=== PATIENT | female | born 1940 | race Caucasian/White ===

== ENCOUNTER 2023-10-19 20:32 | Inpatient (IN) | payer MEDICARE, OTHER, SELFPAY ==
[2023-10-19] VITALS (9 sets, daily range): BP systolic 101–135; BP diastolic 51–63; PULSE 61–91; RESP 16–18; TEMP 36.3–36.4; O2SAT 94–98; BMI 25.7
--- NOTE | 2023-10-19 20:45 | DI.RAD.S_ITS ---
PROCEDURE: XR HIP W PEL IF DONE RT 2V INDICATIONS: fall, pain TECHNIQUE: 2 views of the hip were acquired. COMPARISON: None. FINDINGS: Bones: Mildly displaced fracture of the basicervical right hip region. There may also be a fracture fragment involving the greater trochanter. Moderate bilateral hip arthrosis. Bilateral calcific tendinopathy. Lumbosacral degenerative changes. Soft tissues: No suspicious calcifications. IMPRESSION: Right basicervical hip fracture. Possible fracture fragment of the greater trochanter also seen. Dictated by: En Urena M.D. on 10/19/2023 at 21:42 Approved by: En Urena M.D. on 10/19/2023 at 21:43
--- NOTE | 2023-10-19 20:46 | DI.RAD.S_ITS ---
PROCEDURE: XR FEMUR RT 1V INDICATIONS: fall, pain TECHNIQUE: 2 views of the femur were acquired. COMPARISON: None. FINDINGS: Bones: No displaced fracture of the femoral shaft. Partially seen knee degenerative changes. Soft tissues: Dystrophic ossification is seen anterior to the distal femur metaphysis. This may be within the suprapatellar recess, with effusion. IMPRESSION: No displaced fracture of the femoral shaft. Knee degenerative changes. Hip fracture findings are separately dictated. Partially seen knee effusion and possible intra-articular ossifications Dictated by: En Urena M.D. on 10/19/2023 at 21:43 Approved by: En Urena M.D. on 10/19/2023 at 21:44
--- NOTE | 2023-10-19 20:47 | DI.RAD.S_ITS ---
PROCEDURE: XR KNEE RT 1TO2V INDICATIONS: fall, pain TECHNIQUE: 2 views of the knee were acquired. COMPARISON: None. FINDINGS: Bones: Moderate to severe knee degenerative changes, particularly in the medial compartment and patellofemoral compartment. Patellar enthesopathy. No acute displaced fracture or dislocation. Soft tissues: Knee effusion and suprapatellar ossification. IMPRESSION: Moderate to severe degenerative changes. No acute radiographic abnormality. If there is high concern for occult injury, consider repeat radiography or cross-sectional imaging. Knee effusion and suprapatellar ossification. Dictated by: En Urena M.D. on 10/19/2023 at 21:44 Approved by: nE Urena M.D. on 10/19/2023 at 21:45
--- NOTE | 2023-10-19 21:55 | DI.RAD.S_ITS ---
PROCEDURE: XR CHEST 1V INDICATIONS: fall TECHNIQUE: One view of the chest was acquired. COMPARISON: None. FINDINGS: Surgical changes and devices: None. Lungs and pleura: No dense consolidation or pleural effusion. Nodule projects over the left lower lung, possibly nipple shadow. Mediastinum: Normal heart size Bones and chest wall: Degenerative change IMPRESSION: No acute radiographic abnormality. Indeterminate nodule projects over the left lower lobe, possibly nipple shadow. Dictated by: En Urena M.D. on 10/19/2023 at 23:24 Approved by: En Urena M.D. on 10/19/2023 at 23:25
--- NOTE | 2023-10-19 21:56 | EKG_ITS ---
[address] [address] Test Date: 2023-10-19 Pat Name: Jenni Aguirre Department: [facility] Room: Gender: Female Scow Captain: OLGA : 1940 Requested By: Order Number: [id number] Reading MD: Jan Belle Measurements Intervals [place] Rate: 79 P: 67 FL: 178 QRS: 61 QRSD: 82 T: 66 QT: 390 QTc: 447 Interpretive Statements Normal sinus rhythm Electronically Signed On 10-21-2023 18:25:21 PDT by Jan Belle
--- NOTE | 2023-10-19 21:59 | ED_ITS ---
HPI - Fall General Chief Complaint: Fall Stated Complaint: GLF, hip fx Time Seen by Provider: 10/19/23 20:53 Source: patient and EMS Mode of arrival: EMS History of Present Illness HPI Narrative: 83-year-old female had ground level fall in her [place] home about 6:00 p.m., feels that she tripped over slippery kitchen surface on a dress that was too long, complained of right-sided hip pain, no [employer] service available after hours, was flown by helicopter here for further evaluation. She has some discomfort also in her right knee, no swelling. She does not have pain to her right ankle or foot. She was given fentanyl EN route which transiently helped, now hurting again. She denies any other injuries. She denies pain to her head, face, neck, upper back, lower back, chest, arms, left leg. She denies use of any blood thinner medications. She takes multivitamin and glucosamine, denies other medication use recent. Related Data Home Medications Medication Instructions Recorded Confirmed CHOLECALCIFEROL (VITAMIN D3) 400 iu PO QDAY ##0 12/28/10 10/20/23 (VITAMIN D) Multivitamin and [id number] 240 ml PO BID ##0 12/28/10 10/20/23 (MULTIPLE VITAMIN 240 ML) Allergies Allergy/AdvReac Type Severity Reaction Status Date / Time No Known Drug Allergies Allergy Verified 10/19/23 20:43 Review of Systems Review of Systems Narrative: Per HPI Patient History Social History household members: spouse and family Smoking Status: Never smoker alcohol intake: never Smoking Status: Never smoker Substance Use Type: does not use Exam Narrative Exam Narrative: GENERAL: Well-developed patient, in mild distress. HEAD: Atraumatic. Normocephalic. EYES: Pupils equal round and reactive. Extraocular motions intact. No scleral icterus. No injection or drainage. ENT: Nose without bleeding, purulent drainage. Throat without erythema, tonsillar hypertrophy or exudate. Airway patent. NECK: Trachea midline. Non tender CARDIOVASCULAR: Regular rate and rhythm without murmurs, gallops, or rubs. RESPIRATORY: Clear to auscultation. Breath sounds equal bilaterally. No wheezes, rales, or rhonchi. GASTROINTESTINAL: Abdomen soft, non-tender, nondistended. EXTREMITIES: Tenderness to right hip anterior and lateral, no skin bruising or laceration or abrasion changes. No gross limb length discrepancy. Right DP pulse strong equal, good perfusion to right foot and toes. Mild tenderness along the mid upper femur. No gross angulation deformity of the femur. No tenderness to right knee medial joint line or lateral joint line, no gross knee effusion, no tenderness around the patella. No tenderness deformity swelling to left lower extremity. No tenderness deformity to either upper extremity. BACK: Nontender without deformity or crepitance. No flank tenderness. NEURO: AOx3. SKIN: No rash or erythema of visible areas Initial Vital Signs Initial Vital Signs: Vital Signs Temperature 97.3 F L 10/19/23 20:43 Pulse Rate 67 10/19/23 20:43 Respiratory Rate 16 10/19/23 20:43 Blood Pressure 131/58 L 10/19/23 20:43 Pulse Oximetry 95 10/19/23 20:43 Oxygen Delivery Method Room Air 10/19/23 20:43 Course Orders Ordered: Hydrocodone Bitart/Acetaminophen (Hydrocodone/Acet 5/325 Tablet) 1 tab PO Q4H PRN PRN Reason: Pain, Severe (7-10) Hydromorphone HCl (Hydromorphone 0.5 Mg Inj) 0.5 mg IV Q3H PRN PRN Reason: Pain, Moderate (4-6) Sodium Chloride (Normal Saline 0.9%) 1,000 mls @ 70 mls/hr IV CONT YAYO Last Admin: 10/20/23 01:56 Dose: 70 mls/hr Documented By: Naloxone HCl (Naloxone 0.4 Mg/Ml Vial) 0.2 mg IV Q2MIN PRN PRN Reason: Opiate Reversal Discontinued Medications Hydromorphone HCl (Hydromorphone 0.5 Mg Inj) 0.5 mg IV NOW ONE Stop: 10/19/23 23:22 Last Admin: 10/19/23 23:25 Dose: 0.5 mg Documented By: SIDNEY Vital Signs Vital signs: Vital Signs - 8 hr 10/19/23 20:43 10/19/23 21:18 10/19/23 21:30 Temperature 97.3 F L Pulse Rate 67 83 Respiratory Rate 16 Blood Pressure 131/58 L 118/58 L Pulse Oximetry 95 94 Oxygen Delivery Method Room Air 10/19/23 21:30 10/19/23 22:00 10/19/23 22:00 Temperature Pulse Rate 85 90 Respiratory Rate Blood Pressure 135/63 Pulse Oximetry 95 97 Oxygen Delivery Method 10/19/23 22:30 10/19/23 22:31 10/19/23 22:31 Temperature Pulse Rate 89 91 H Respiratory Rate Blood Pressure 125/59 L Pulse Oximetry 96 96 Oxygen Delivery Method Room Air MDM - Fall Lab Data 10/20/23 04:03 10/20/23 04:03 ECG Data Attestation: I personally reviewed and interpreted this ECG as follows: Interpretation: Normal sinus rhythm with rate of 79, no obvious ST segment elevation or depression changes. Normal axis. NE 178, QRS 82, QTC 447. [facility] Narrative Medical decision making narrative: 83-year-old female from [place], airlifted with fall and right hip pain, on x-ray has a right-sided basicervical hip fracture, possible fracture fragment of the greater trochanter, no blood thinner medications, takes vitamin and glucosamine only. We will send preoperative studies EKG, chest x-ray, urinalysis, CBC, CMP, PT/INR. She had initial response to [place] IV fentanyl, now having more pain, IV Dilaudid dose ordered. We will place Parada. We will contact Orthopedic surgery, likely admit to hospitalist, keep NPO. X-ray right hip. Impression: ?Right basicervical hip fracture. Possible fracture fragment of the greater trochanter also seen. ? Radiology report Right femur x-ray series. Impression: ?No displaced fracture of the femoral shaft. Knee degenerative changes. Hip fracture findings or separately dictated. Partially seen right knee effusion and possible intra-articular ossifications. ? Radiology report X-ray right knee. Impression: ?Moderate to severe degenerative changes. No acute radiographic abnormality. If there is high concern for injury, consider repeat radiography or cross-sectional imaging. Knee effusion and supra patellar ossification. ? Radiology report 2209, discussed orthopedic surgery Dr. Sanchez, she will consult, agrees with Parada placement, likely surgery by tomorrow afternoon, admit to hospitalist requested. Parada urinary catheter ordered 2244, discussed with hospitalist Dr. Henning, accepts patient for admission to inpatient Chest x-ray preoperative study single view. Impression: ?No acute radiographic abnormality. Indeterminate nodule projects over the left lower lobe, possible nipple shadow. ? Radiology report Critical Care Time Critical Care Time Critical Care Time: Yes Total Critical Care Time: 35 Attestation: The high probability of a clinically significant, sudden or life threatening deterioration of the [musculoskeletal, orthopedic] system(s) required my full and direct attention, intervention and personal management. The aggregate critical care time was [35] minutes. This time is in addition to time spent performing reported procedures but includes the following: [x] Data Review and interpretation [x] Patient assessment and monitoring of vital signs [x] Documentation [x] Medication orders and management Discharge Plan Departure Patient Disposition: Admitted As Inpatient Clinical Impression: Closed fracture of right hip, Lung nodule Admit Date/Time: 10/19/23 22:47 Admit Provider: Tripp Henning
[2023-10-19 23:21] LABS: Appearance Urine UA CLEAR; Bilirubin Urine UA NEGATIVE (NEGATIVE); Color Urine UA YELLOW; Glucose Urine UA NEGATIVE (Negative); Ketones Urine UA NEGATIVE (NEGATIVE); Leukocyte Esterase Urine UA TRACE (NEGATIVE); Nitrite Urine UA NEGATIVE (Negative); Occult Blood Urine UA NEGATIVE (Negative); Protein Urine UA NEGATIVE (Negative); Urobilinogen Urine UA 0.2 E.U./dL (0.2)
[2023-10-19] MEDS: HYDROMORPHONE 0.5 MG INJ IV (23:25)
[2023-10-19 23:27] LABS: INR 1.1 (0.9-1.3); Prothrombin Time 12.1 SECONDS (9.4-12.5)
[2023-10-19 23:30] LABS: PTT Partial Thromboplastin Tim 35 SECONDS (25.1-36.5)
[2023-10-19 23:31] LABS: Add Manual Diff / Slide Review NO; Alanine Aminotransferase 23 IU/L (<35); Albumin 3.8 g/dL (3.5-5.0); Albumin Globulin Ratio 1.4 (1.0-2.8); Alkaline Phosphatase 103 U/L (38-126); Aspartate Aminotransferase 28 IU/L (14-36); BUN Creatinine Ratio 19.5 (6-22); Basophils Absolute Auto 100 /uL (0-100); Basophils Percent Auto 0.6 % (0-2); Bilirubin Total 0.3 mg/dL (0.2-1.3); Blood Urea Nitrogen 17 mg/dL (7-17); Calcium 8.2 mg/dL (8.4-10.2); Carbon Dioxide 25 mmol/L (22-32); Chloride 108 mmol/L (98-107); Eosinophils Absolute Auto 0 /uL (0-450); Eosinophils Percent Auto 0.3 % (2-4); Estimated Glomerular Filt Rate > 60 mL/min (>60); Globulin 2.8 g/dL (1.7-4.1); Glucose 150 mg/dL (80-110); HEMOLYSIS 17 (0-50); Hemoglobin 12.8 g/dL (12.0-16.0); Lymphocytes Absolute Auto 800 /uL (1100-4500); Lymphocytes Percent Auto 5.7 % (25-40); Mean Corpuscular HGB Conc 33.7 % (30-36); Mean Corpuscular Hemoglobin 32.2 PG (26-34); Mean Corpuscular Volume 95.6 fL (80-100); Monocytes Absolute Auto 700 /uL (0-900); Monocytes Percent Auto 4.8 % (3-14); Neutrophils Absolute Auto 13100 /uL (1500-7000); Neutrophils Percent Auto 88.6 % (50-75); Platelet Count 256 X10^3/uL (150-400); Red Blood Cell Count 3.97 X10^6/uL (4.0-5.2); Sodium 137 mmol/L (137-145); Total Protein 6.6 g/dL (6.3-8.2); White Blood Cell Count 14.7 X10^3/uL (4.5-11.0)
[2023-10-19 23:34] LABS: Bacteria Urine Occasional (0-1); Culture Indicated Urine Specimen Cultured; RBC Urine None Seen (0-5/HPF); Squamous Epithelial Cell Urine 0-1 /HPF (0-5/HPF); Urine Volume 10mL (spun); WBC Urine 0-1/HPF (0-5/HPF)
[2023-10-20 00:02] VITALS: BMI 25.7
--- NOTE | 2023-10-20 01:23 | P.HP_ITS ---
History of Present Illness History of Present Illness Date Patient Seen: 10/20/23 Time Patient Seen: 01:10 Chief complaint: GLF, hip fx Narrative: patient is a 83 years old pleasant female with apparent no medical issues except for [id number] vitamins was brought to the emergency room status post fall in the kitchen. It was a mechanical fall and she tripped over her dress with significant right-sided hip pain. Denies any chest pain shortness of breath palpitation dizziness or loss of consciousness. No trauma to the head. She was flown by helicopter to the [facility] for further evaluation. Denies any nausea vomiting or abdominal pain. Denies bowel movementbladder issues. X-ray of the right hip showed right basicervical hip fracture with tumor x-ray shows no displaced fracture of the femoral shaft. X-ray of the knee shows significant degenerative change. Dr. Sanchez from orthopedics were consulted and patient was admitted for further evaluatio [facility] Social History household members: spouse and family Smoking Status: Never smoker alcohol intake: never Meds Home Medications and Allergies Home Medications Medication Instructions Recorded Confirmed Type CHOLECALCIFEROL (VITAMIN D3) 400 iu PO QDAY ##0 12/28/10 10/20/23 History (VITAMIN D) Multivitamin and Oumyryoq56 240 ml PO BID ##0 12/28/10 10/20/23 History (MULTIPLE VITAMIN 240 ML) Allergies Allergy/AdvReac Type Severity Reaction Status Date / Time No Known Drug Allergies Allergy Verified 10/19/23 20:43 Review of Systems Review of Systems Narrative: A 12 point review of system is negative unless otherwise stated in the history of present illness Exam Vital Signs (past 8 hours): - 10/19/23 20:43 10/19/23 21:18 10/19/23 21:30 Temperature 97.3 F L Pulse Rate 67 83 Respiratory Rate 16 Blood Pressure 131/58 L 118/58 L Pulse Oximetry 95 94 Oxygen Delivery Method Room Air Oxygen Flow Rate 10/19/23 21:30 10/19/23 22:00 10/19/23 22:00 Temperature Pulse Rate 85 90 Respiratory Rate Blood Pressure 135/63 Pulse Oximetry 95 97 Oxygen Delivery Method Oxygen Flow Rate 10/19/23 22:30 10/19/23 22:31 10/19/23 22:31 Temperature Pulse Rate 89 91 H Respiratory Rate Blood Pressure 125/59 L Pulse Oximetry 96 96 Oxygen Delivery Method Room Air Oxygen Flow Rate 10/19/23 23:00 10/19/23 23:00 10/19/23 23:29 Temperature Pulse Rate 81 83 Respiratory Rate 18 Blood Pressure 127/61 127/61 Pulse Oximetry 97 98 Oxygen Delivery Method Room Air Oxygen Flow Rate 10/19/23 23:30 Temperature 97.6 F Pulse Rate 61 Respiratory Rate 17 Blood Pressure 101/51 L Pulse Oximetry 96 Oxygen Delivery Method Oxygen Flow Rate 0 Oxygen Delivery Method Room Air Oxygen Flow Rate 0 Narrative Exam Narrative: Decreased range of motion in the right hip. Pulse noted in the extremities Patient is in no acute distress S1-S2 heard no S3 no S4 Objective Labs 10/19/23 23:00 10/19/23 23:00 Labs: Laboratory Results - last 24 hr 10/19/23 23:00 WBC 14.7 H RBC 3.97 L Hgb 12.8 Hct 38.0 MCV 95.6 MCH 32.2 MCHC 33.7 RDW 14.0 Plt Count 256 Neut % (Auto) 88.6 H Lymph % (Auto) 5.7 L [place] % (Auto) 4.8 Eos % (Auto) 0.3 L Baso % (Auto) 0.6 Neut # (Auto) 99221 H Lymph # (Auto) 800 L [place] # (Auto) 700 Eos # (Auto) 0 Baso # (Auto) 100 PT 12.1 INR 1.1 APTT 35 Sodium 137 Potassium 4.0 Chloride 108 H Carbon Dioxide 25 BUN 17 Creatinine 0.87 Estimated GFR > 60 BUN/Creatinine Ratio 19.5 Glucose 150 H Calcium 8.2 L Total Bilirubin 0.3 AST 28 ALT 23 Alkaline Phosphatase 103 Total Protein 6.6 Albumin 3.8 Globulin 2.8 Albumin/Globulin Ratio 1.4 Urine Color Yellow Urine Appearance Clear Urine pH 8.0 Ur Specific [place] 1.010 Urine Protein Negative Urine Glucose (UA) Negative Urine Ketones Negative Urine Occult Blood Negative Urine Nitrate Negative Urine Bilirubin Negative Urine Urobilinogen 0.2 Ur Leukocyte Esterase Trace H Urine RBC None seen Urine WBC 0-1/hpf Ur Squamous Epith Cells 0-1 /hpf Urine Bacteria Occasional (0-1) Ur Culture Indicated? Specimen cultured Vol Urine Centrifuged 10ml (spun) Assessment & Plan Assessment & Plan narrative: patient is a 83 years old pleasant female with apparent no medical issues except for dpid-lcm-lyvnsoi vitamins was brought to the emergency room status post fall in the kitchen. It was a mechanical fall and she tripped over her dress with significant right-sided hip pain. Denies any chest pain shortness of breath palpitation dizziness or loss of consciousness. No trauma to the head. She was flown by helicopter to the [facility] for further evaluation. Denies any nausea vomiting or abdominal pain. Denies bowel movementbladder issues. X-ray of the right hip showed right basicervical hip fracture with tumor x-ray shows no displaced fracture of the femoral shaft. X-ray of the knee shows significant degenerative change. Dr. Sanchez from orthopedics were consulted and patient was admitted for further evaluation 1 right hip fracture status post mechanical fall. Currently denies any cardiac or respiratory symptoms. Apparently no medical issues and not on medications. Medically optimized for orthopedic surgery that is urgent to reduce the risk of mortality and morbidity 2 right hip pain. Has better pain relief with Dilaudid given in the emergency room and will continue the same 3 DVT prophylaxis will be SCDs for now. Chemoprophylaxis per orthopedics 4 GI prophylaxis will be Protonix Patient will be admitted under inpatient status given the acute hip fracture needing surgical intervention/IV pain medications and expected length of stay greater than 2 midnights
[2023-10-20] MEDS: SODIUM CHLORIDE 0.9% 1,000 ML 70 ML IV ×2 (01:56→15:24)
[2023-10-20 04:07] VITALS: BP 114/51; PULSE 63; RESP 16; TEMP 36.6; O2SAT 96
[2023-10-20 05:02] LABS: Add Manual Diff / Slide Review NO; Basophils Absolute Auto 0 /uL (0-100); Basophils Percent Auto 0.2 % (0-2); Eosinophils Absolute Auto 0 /uL (0-450); Eosinophils Percent Auto 0.1 % (2-4); Hematocrit 36.4 % (36-46); Hemoglobin 12.3 g/dL (12.0-16.0); Lymphocytes Absolute Auto 900 /uL (1100-4500); Mean Corpuscular HGB Conc 33.9 % (30-36); Mean Corpuscular Hemoglobin 32.3 PG (26-34); Mean Corpuscular Volume 95.4 fL (80-100); Monocytes Absolute Auto 800 /uL (0-900); Monocytes Percent Auto 6.5 % (3-14); Neutrophils Absolute Auto 10700 /uL (1500-7000); Neutrophils Percent Auto 86.2 % (50-75); Platelet Count 244 X10^3/uL (150-400); Red Blood Cell Count 3.81 X10^6/uL (4.0-5.2); Red Cell Distribution Width 13.7 % (11.6-14.8); White Blood Cell Count 12.4 X10^3/uL (4.5-11.0)
[2023-10-20 05:15] LABS: Alanine Aminotransferase 20 IU/L (<35); Albumin 3.6 g/dL (3.5-5.0); Albumin Globulin Ratio 1.3 (1.0-2.8); Alkaline Phosphatase 79 U/L (38-126); Aspartate Aminotransferase 26 IU/L (14-36); BUN Creatinine Ratio 18.6 (6-22); Bilirubin Total 0.5 mg/dL (0.2-1.3); Blood Urea Nitrogen 16 mg/dL (7-17); Calcium 8.1 mg/dL (8.4-10.2); Carbon Dioxide 26 mmol/L (22-32); Chloride 107 mmol/L (98-107); Estimated Glomerular Filt Rate > 60 mL/min (>60); Globulin 2.7 g/dL (1.7-4.1); Glucose 149 mg/dL (80-110); HEMOLYSIS < 15 (0-50); Magnesium 2.4 mg/dL (1.6-2.3); Potassium 4.3 mmol/L (3.4-5.1); Sodium 137 mmol/L (137-145); Total Protein 6.3 g/dL (6.3-8.2)
[2023-10-20 10:10] VITALS: BP 110/49; PULSE 80; RESP 17; TEMP 36.8; O2SAT 95
[2023-10-20] MEDS: HYDROCODONE/ACET 5/325 TABLET 1 TAB PO ×3 (10:15→20:20)
[2023-10-20 14:00] VITALS: BP 111/50; PULSE 70; RESP 15; TEMP 37.2; O2SAT 98
--- NOTE | 2023-10-20 14:28 | PM.HP.1 ---
History of Present Illness History of Present Illness Date Patient Seen: 10/20/23 Time Patient Seen: 11:00 Chief complaint: GLF, hip fx Narrative: patient is a 83 years old pleasant female with apparent no medical issues except for qqvm-yiu-rordkmm vitamins was brought to the emergency room status post fall in the kitchen. It was a mechanical fall and she tripped over her dress with significant right-sided hip pain. Denies any chest pain shortness of breath palpitation dizziness or loss of consciousness. No trauma to the head. She was flown by helicopter to the [facility] for further evaluation. Denies any nausea vomiting or abdominal pain. Denies bowel movementbladder issues. X-ray of the right hip showed right basicervical hip fracture with tumor x-ray shows no displaced fracture of the femoral shaft. X-ray of the knee shows significant degenerative change. Dr. Sanchez from orthopedics were consulted and patient was admitted for further evaluatio [facility] Social History household members: spouse and family Smoking Status: Never smoker alcohol intake: never Meds Home Medications and Allergies Home Medications Medication Instructions Recorded Confirmed Type CHOLECALCIFEROL (VITAMIN D3) 400 iu PO QDAY ##0 12/28/10 10/20/23 History (VITAMIN D) Multivitamin and Ocreksbt13 240 ml PO BID ##0 12/28/10 10/20/23 History (MULTIPLE VITAMIN 240 ML) Allergies Allergy/AdvReac Type Severity Reaction Status Date / Time No Known Drug Allergies Allergy Verified 10/19/23 20:43 Review of Systems Review of Systems Narrative: All other systems reviewed with the patient and are negative unless otherwise stated. Exam Vital Signs (past 8 hours): - 10/20/23 10:10 Temperature 98.3 F Pulse Rate 80 Respiratory Rate 17 Blood Pressure 110/49 L Pulse Oximetry 95 Oxygen Flow Rate 0 Oxygen Delivery Method Room Air Oxygen Flow Rate 0 Narrative Exam Narrative: General:? Patient is well developed and well nourished, in no distress at this time. HEENT:? Normocephalic, atraumatic, extraocular muscles intact, oral pharynx is clear and mucous membranes are moist. Neck: supple and symmetric, trachea is midline, no cervical adenopathy. Negative for JVD Chest:? Normal AP diameter and contour without kyphoscoliosis, no tachypnea, equal chest rise bilaterally. Lungs:? CTA b/l no wheezing rhonchi or rales. Cardio:?RRR no m/r/g. Abdomen: S NT ND. No CVA tenderness. Musculoskeletal:? Muscle strength and tone are equal within normal limits, no deformity. Extremities: No edema or joint effusions. No cyanosis or clubbing. Skin:? Pale,? Warm to touch,dry and intact without rashes, ulcerations or petechiae.? Neuro:? Alert and orientated x3,? sensation to touch intact in all extremities, no gross deficits noted of cranial nerves. Psych:? Patient has a well-kept appearance, appropriate affect, mental status attitude thought context and judgment are appropriate for age. Objective Labs 10/20/23 04:03 10/20/23 04:03 Labs: Laboratory Results - last 24 hr 10/19/23 10/20/23 23:00 04:03 WBC 14.7 H 12.4 H RBC 3.97 L 3.81 L Hgb 12.8 12.3 Hct 38.0 36.4 MCV 95.6 95.4 MCH 32.2 32.3 MCHC 33.7 33.9 RDW 14.0 13.7 Plt Count 256 244 Neut % (Auto) 88.6 H 86.2 H Lymph % (Auto) 5.7 L 7.0 L [place] % (Auto) 4.8 6.5 Eos % (Auto) 0.3 L 0.1 L Baso % (Auto) 0.6 0.2 Neut # (Auto) 99857 H 52616 H Lymph # (Auto) 800 L 900 L [place] # (Auto) 700 800 Eos # (Auto) 0 0 Baso # (Auto) 100 0 PT 12.1 INR 1.1 APTT 35 Sodium 137 137 Potassium 4.0 4.3 Chloride 108 H 107 Carbon Dioxide 25 26 BUN 17 16 Creatinine 0.87 0.86 Estimated GFR > 60 > 60 BUN/Creatinine Ratio 19.5 18.6 Glucose 150 H 149 H Calcium 8.2 L 8.1 L Magnesium 2.4 H Total Bilirubin 0.3 0.5 AST 28 26 ALT 23 20 Alkaline Phosphatase 103 79 Total Protein 6.6 6.3 Albumin 3.8 3.6 Globulin 2.8 2.7 Albumin/Globulin Ratio 1.4 1.3 Urine Color Yellow Urine Appearance Clear Urine pH 8.0 Ur Specific [place] 1.010 Urine Protein Negative Urine Glucose (UA) Negative Urine Ketones Negative Urine Occult Blood Negative Urine Nitrate Negative Urine Bilirubin Negative Urine Urobilinogen 0.2 Ur Leukocyte Esterase Trace H Urine RBC None seen Urine WBC 0-1/hpf Ur Squamous Epith Cells 0-1 /hpf Urine Bacteria Occasional (0-1) Ur Culture Indicated? Specimen cultured Vol Urine Centrifuged 10ml (spun) Assessment & Plan Assessment & Plan narrative: 1 pathologic R proximal femur / hip fracture. - management per orthopedics, surgery delayed until tomorrow - continue pain control for now, patient reports pain is tolerable. PT/OT after surgery - NPO @ [facility] for planned OR interventions tomorrow. 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 She does not wish to start treatment at this time. Further discussion recommended with PCP. - there are no obvious lab findings to suggest a metabolic etiology for her fall. No further evaluation necessary prior to planned surgery. Patient will be admitted under inpatient status given the acute hip fracture needing surgical intervention/IV pain medications and expected length of stay greater than 2 midnights Code: Full, surrogate is listed as patient's friend DVT: Lovenox daily I have utilized all available immediate resources to obtain, update, or review the patient's current medications. Dispo: patient admitted under inpatient status. Unclear if will be able to discharge home or possible SNF, will have PT/OT evaluations. Likely discharge 10/22 or 10/23. Additional history obtained via discussions with the overnight provider. These discussions contributed to the creation of the above assessment and plan. I have reviewed patient's presenting documentation, labs, and imaging personally.
--- NOTE | 2023-10-20 15:55 | CM.DANOTE ---
DCP Assessment: Pt is a 83yo female, resident of [place], [place], is presents following a GLF resulting in a hip fracture. Pt currently lives in a house with her , Mac, and her grandnephew, Sal Flaherty. Patient is the primary caregiver for her who has Progressive supranuclear palsy (PSP). Pt's Primary Care Provider is Dr. DICKERSON and insurance is [facility] and Medicare. Reviewed chart and team rounds for pt's medical status and initial discharge needs. DCP met w/patient at bedside; introduced self and role. Pt was found in bed, alert and oriented, cooperative with assessment. Pt confirmed living situation (lives in [place], [place] for three months, [place] in the summer and [facility] for another three months) and being the primary emergency care tech for her . Pt endorsed good support in her grandnephew, Sal, who lives with them in the summer. Pt communicated agreement with plans for surgery tomorrow, 10/20, and is open to hearing the recommendations for discharge. Pt is open to SNF referral and stated no preference for any facilities in the area. Pt explained that if the plan of care looks to be longer than three months, she will hope to return to [facility] to complete care. Plan: Pt to have surgery tomorrow, 10/20. Awaiting PT/OT evaluations following procedure and recommendation for evolving discharge plans. CM team will plan to follow clinical course closely for coordination of discharge plan. MANSI Dalal Discharge Planning/Care Management CM Discharge Assessment Start: 10/20/23 15:37 Freq: Status: Active Protocol: Document 10/20/23 15:37 MW (Rec: 10/20/23 15:55 MW [id number]) Discharge Planning Assessment Assigned Slot Operations Manager MAYLIN Gayle DPGEETA/Assigned Designee Name Fred Krishnan Advance Directives? No History Provided By Patient,Medical Record Has Patient been admitted in last 30 No days? Prior Living Arrangements House Comment Patient lives in [place], [place] for three months of the year, then on [place] for the summer then [facility] for another three months. Household Members spouse,family Comment Patient owns home on [address] with her , her grandnephew, Sal, lives with them in the summer. Type of transporation used prior to Drives own vehicle admit Independent with ADL's Yes Is patient alert and oriented? Yes Caregiver for Another Yes: Patient's has Progressive supranuclear palsy (PSP). Patient/Family Preference Shelter Facility Comment Patient open to SNF referral if recommended by therapies. Patient has plans to return to [facility] in November. Barriers to Discharge No Please Provide Date Initial DC 10/20/23 Assessment Was Performed Next Review Type Continued Stay Review
[2023-10-20 18:00] VITALS: BP 109/48; PULSE 77; RESP 17; TEMP 36.7; O2SAT 96
[2023-10-20 19:56] VITALS: BP 113/55; PULSE 72; RESP 16; TEMP 36.6; O2SAT 96
[2023-10-21] VITALS (16 sets, daily range): BP systolic 90–137; BP diastolic 29–61; PULSE 71–87; RESP 12–20; TEMP 36.2–36.8; O2SAT 92–98; BMI 25.7
--- NOTE | 2023-10-21 | DI.RAD.S_ITS ---
PROCEDURE: XR HIP W PEL IF DONE RT 4V INDICATIONS: ORIF RIGHT HIP NAIL TECHNIQUE: AP pelvis with lateral view(s) of the right hip(s). COMPARISON: [facility], , XR HIP W PEL IF DONE RT 2V, 10/19/2023, 20:47. FINDINGS: Intraoperative images demonstrating fixation of the right femoral head as well as distal femur. IMPRESSION: Femoral fixation. Dictated by: Odette Elmore M.D. on 10/21/2023 at 17:02 Approved by: Odette Elmore M.D. on 10/21/2023 at 17:03
[2023-10-21] MEDS: HYDROCODONE/ACET 5/325 TABLET 1 TAB PO ×2 (00:12→04:11)
[2023-10-21] MEDS: SODIUM CHLORIDE 0.9% 1,000 ML 70 ML IV (04:45)
[2023-10-21] MEDS: HYDROMORPHONE 0.5 MG INJ IV (08:58)
--- NOTE | 2023-10-21 10:57 | CM.DPNOTE ---
DCP Note LABORER MINE reviewed EMR. Per hospitalist in morning rounds, OR scheduled for today. Per RN, scheduled for 1400. Per RN, pt pleasant and overall doing well. LABORER MINE attempted to meet with pt in room, sleeping heavily. This LABORER MINE allowed her to rest prior to her surgery today. Plan: Pt to have surgery today, 10/20. Awaiting PT/OT evaluations following procedure and recommendation for evolving discharge plans. SNF here if less than 3 months likely vs SNF in [place]? [facility] ([facility] due to [facility]). Referrals needed. CM team will plan to follow clinical course closely for coordination of discharge plan. MAYLIN Araiza
--- NOTE | 2023-10-21 13:11 | PM.PN.1 ---
Subjective Subjective Interval history: 83 F admitted with a hip fracture. ORIF planned for today with orthopedics. Her pain is controlled today. Exam Vital Signs (past 8 hours): - 10/21/23 08:00 10/21/23 12:00 Temperature 97.2 F L 97.7 F Pulse Rate 71 80 Respiratory Rate 16 18 Blood Pressure 119/49 L 137/59 L Pulse Oximetry 97 96 Oxygen Flow Rate 0 0 Oxygen Delivery Method Room Air Oxygen Flow Rate 0 Narrative Exam Narrative: General:? Patient is well developed and well nourished, in no distress at this time. Lungs:? CTA b/l no wheezing rhonchi or rales. Cardio:?RRR no m/r/g. Musculoskeletal:? Muscle strength and tone are equal within normal limits Extremities: No edema or joint effusions. Skin:? Pale,? Warm to touch,dry and intact without rashes, ulcerations or petechiae.? Neuro:? Alert and orientated x3,? sensation to touch intact in all extremities, no gross deficits noted of cranial nerves. Psych:? Patient has a well-kept appearance, appropriate affect, mental status attitude thought context and judgment are appropriate for age. Objective Labs 10/20/23 04:03 10/20/23 04:03 [facility] Social History household members: spouse and family Smoking Status: Never smoker alcohol intake: never Assessment & Plan Assessment & Plan narrative: 1 pathologic R proximal femur / hip fracture. - management per orthopedics, surgery delayed until tomorrow - continue pain control for now, patient reports pain is tolerable. PT/OT after surgery - NPO @ [place] for planned OR interventions tomorrow. 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 She does not wish to start treatment at this time. Further discussion recommended with PCP. - there are no obvious lab findings to suggest a metabolic etiology for her fall. No further evaluation necessary prior to planned surgery. Patient will be admitted under inpatient status given the acute hip fracture needing surgical intervention/IV pain medications and expected length of stay greater than 2 midnights Code: Full, surrogate is listed as patient's friend DVT: Lovenox daily after OR for 4 weeks or asa BID for 6 weeks if more ambulatory. Dispo: patient admitted under inpatient status. Unclear if will be able to discharge home or possible SNF, will have PT/OT evaluations. Likely discharge 10/22 or 10/23.
--- NOTE | 2023-10-21 14:05 | P.HP_ITS ---
History of Present Illness History of Present Illness Date Patient Seen: 10/21/23 Time Patient Seen: 14:06 Date of Onset of Symptoms: 10/26/23 Chief complaint: GLF, hip fx Narrative: 83-year-old female patient seen in evaluation for right hip fracture. She says she had a fall on some slick tile Friday evening. She was brought here by helicopter as she lives on [address]. She says she had a recent wellness check with her primary care physician within the past month and had no major medical issues at that checkup. She does not take any prescription medications. She says she is overall very healthy. She complains of pain in right hip. It is worse with movement and partially alleviated by rest. It does not radiate. [facility] Social History household members: spouse and family Smoking Status: Never smoker alcohol intake: never Meds Home Medications and Allergies Home Medications Medication Instructions Recorded Confirmed Type CHOLECALCIFEROL (VITAMIN D3) 400 iu PO QDAY ##0 12/28/10 10/20/23 History (VITAMIN D) Multivitamin and Xusjeszy55 240 ml PO BID ##0 12/28/10 10/20/23 History (MULTIPLE VITAMIN 240 ML) Allergies Allergy/AdvReac Type Severity Reaction Status Date / Time No Known Drug Allergies Allergy Verified 10/19/23 20:43 Review of Systems Review of Systems ROS: Yes All systems reviewed with the patient and are negative except as otherwise documented Exam Vital Signs (past 8 hours): - 10/21/23 08:00 10/21/23 12:00 Temperature 97.2 F L 97.7 F Pulse Rate 71 80 Respiratory Rate 16 18 Blood Pressure 119/49 L 137/59 L Pulse Oximetry 97 96 Oxygen Flow Rate 0 0 Oxygen Delivery Method Room Air Oxygen Flow Rate 0 Narrative Exam Narrative: Right lower extremity shortened and externally rotated. Range of motion examination deferred given known injury. Sensation intact to light touch in L2 through S1 nerve distributions. Motor function intact in foot Const General: cooperative Orientation: alert and awake [facility] Head: normal to inspection Ears: hearing grossly normal bilaterally Eyes General: appearance normal, both eyes and all related structures Neck Neck: normal visual inspection Resp Effort & Inspection: normal respiratory effort and able to speak in complete sentences Cardio Pulses: other (peripheral pulses present) Skin Lesions: no lesions Rashes: no rashes Neuro General: patient alert, patient awake and moves all extremities Psych Appearance: grossly normal Objective Imaging Pelvis and right femur x-rays: My impression: Unstable intertrochanteric right femur fracture Labs 10/20/23 04:03 10/20/23 04:03 Assessment & Plan Assessment and plan (1) Closed fracture of right hip: Status: Acute Plan Plan to proceed with intramedullary nailing of the right hip today. Patient has been marked and consented. Discussed risks and benefits of surgery with her at length. Specific risks discussed include nonunion, malunion, posttraumatic arthritis, damage to surrounding structures, infection, perioperative medical complications. Patient understands these risks and wishes to proceed. We will plan for her to be weight-bearing as tolerated postoperatively. She will have a mobility assessment postoperatively determine the feasibility of returning home versus discharging to a [place] [facility] facility for subacute rehabilitation.
[2023-10-21] MEDS: LACTATED RINGERS 1,000 ML 42 ML IV ×2 (14:33→16:10)
[2023-10-21] MEDS: CEFAZOLIN 2 GM/100 ML PREMIX 100 ML IV (15:10)
--- NOTE | 2023-10-21 15:11 | SUR.OPER ---
Patient supine on padded [facility] table, one arm on padded arm board at <90, other arm padded and secured with tape across patient's chest, both legs secured in padded traction boots and positioned per surgeon, padded post at patient's groin, pressure points checked and padded.
[2023-10-21] MEDS: TRANEXAMIC ACID 1,000 MG in SODIUM CHLORIDE 0.9% 100 ML 200 MG IV ×2 (15:15→16:20)
[2023-10-21] MEDS: ACETAMINOPHEN IV 1,000 MG/100 ML VIAL 400 MG IV (15:35)
[2023-10-21] MEDS: BUPIVACAINE 0.25% (PF) 30 ML, EPINEPHrine 0.15 MG INJ (15:44)
--- NOTE | 2023-10-21 16:40 | P.OP_ITS ---
Operative Date/Time/Diagnoses Date of procedure: 10/21/23 Pre-op diagnosis: Intertrochanteric right femur fracture Post-op diagnosis: same Procedure & Clinicians Procedure: Intramedullary nailing of intertrochanteric right femur fracture Same procedure as scheduled: Yes Surgeon: Otf Mahmood Click Yes if Unassisted: Yes Anesthesia Type: General, Spinal and Local Operative Notes Estimated Blood Loss (mL): 300 Procedure in detail: Right Hip Intramedullary Nailing for Intertrochanteric Femur Fracture Implants: * [employer]hew 10 mm x 38 cm InterTAN nail * 95 mm proximal lag screw * 90 mm proximal compression screw * 40 mm distal interlocking screw * 45 mm distal interlocking screw Procedure in detail: This patient presented to the hospital for hip pain and was found to have an intertrochanteric femur fracture on radiographic evaluation in the emergency department. ?As the on-call orthopedic surgeon I was consulted for management. ?The patient was admitted to the medicine service here at [facility] and received a preoperative evaluation to ensure that no optimization measures would be necessary to minimize the patient's risk for complications around surgery prior to proceeding with intramedullary nailing. ?After assessment from the signal apprentice as well as anesthesia the patient was deemed optimized for surgery. ?Risks and benefits were discussed. ?All questions were answered. ?Informed consent was obtained. ?The operative site on the laterality extremity was marked. ?The patient was taken to the operating room and transferred onto a [place] table. ?All bony prominences were padded. ?A time-out procedure was performed verifying the correct patient identity, operative site, medical comorbidities, ASA score, and medication allergies. ?Injury radiographs displaying the injured hip were displayed in the room. ?Ancef and tranexamic acid were administered. Prior to incision fluoroscopy was utilized to manipulate the fracture into an appropriate reduction. ?This involved traction and 15 degrees of internal rotation. With neutral rotation the femur could be brought into a more valgus orientation however this resulted in gapping near the calcar. Once the leg was internally rotated to 15? there was cortical reduction on the calcar which improved with the application of traction.. ?Once satisfied with the radiographic appearance of the fracture on an AP hip radiograph as well as a lateral hip radiograph the patient was prepped and draped in the usual sterile fashion. ?I mapped out the start points fluoroscopically with the guidewire. ?I obtained a start point at the tip of the greater trochanter on the AP view aiming towards the lesser trochanter and centered in the greater trochanter aiming down the femoral shaft on the lateral view. ?The guidewire was inserted and an opening Reamer was utilized to gain access to the canal. An intramedullary wood miller was used to locate the hole from the opening Reamer and a guidewire was passed down to the knee. This was measured at 40 cm so a 38 cm nail was planned for. An 11.5 mm Reamer was used to open the canal. ?The InterTAN nail was introduced and passed down to an appropriate depth where the i nterlocking screws would aim towards the center of the femur on an AP view. ?On a lateral fluoroscopic view the rotation of the C-arm was adjusted until the nail was centered in the femoral head. ?The jig was then rotated so that it would line with the nail and the femoral head in order to set the rotation of the nail. ?A guidewire was passed and evaluated to ensure appropriate center center position on both the AP and lateral fluoroscopic images to minimize tip apex distance. ?Once satisfied with the guidewire position I used the drills for the lag and compression screws for the InterTAN nail and measured the length of those. ?The compression screw utilized was 5 mm shorter than the lag screw. ?These were both inserted and correct positioning was verified fluoroscopically. ?I moved distally to the knee and obtained perfect circles. 2 distal interlocks were inserted through the aid of perfect circles. ?The threaded capture was removed proximally and final fluoroscopic images were obtained evaluating fracture reduction and implant positioning on AP and lateral views throughout the entire construct. ?I was satisfied with these radiographs. The wound was copiously irrigated. ?Local anesthesia was infiltrated throughout the wound. ?The wound was closed and a soft dressing was applied. ?The patient was transferred off of the [place] table and brought to the PACU. Postoperative plan: * Weightbearing as tolerated * Aspirin 81 mg twice per day for DVT prophylaxis * Recommend multimodal pain regimen * Physical therapy to evaluate patient mobility, home set up, and availability of assistance at home to determine appropriateness for discharge home versus subacute rehab * Follow up in [address] [facility]
[2023-10-21] MEDS: LACTATED RINGERS 1,000 ML 100 ML IV (17:30)
[2023-10-21] MEDS: diphenhydrAMINE 25 MG TABLET 50 MG PO (19:41)
[2023-10-21 20:59] LABS: Hematocrit 33.9 % (36-46); Hemoglobin 11.3 g/dL (12.0-16.0)
[2023-10-21] MEDS: DOCUSATE 100 MG CAPSULE PO (22:05)
[2023-10-21] MEDS: ASPIRIN EC 81 MG TABLET PO (22:05)
[2023-10-21] MEDS: SENNOSIDES 8.6 MG TABLET 17.2 MG PO (22:05)
[2023-10-21] MEDS: CEFAZOLIN VIAL 1 GM in SODIUM CHLORIDE 0.9% 100 ML IV (23:40)
[2023-10-22] VITALS (8 sets, daily range): BP systolic 91–106; BP diastolic 37–47; PULSE 78–91; RESP 14–18; TEMP 36.4–37.9; O2SAT 91–98
[2023-10-22] MEDS: LACTATED RINGERS 1,000 ML 100 ML IV (03:42)
[2023-10-22 05:08] LABS: Add Manual Diff / Slide Review NO; Basophils Absolute Auto 0 /uL (0-100); Basophils Percent Auto 0.2 % (0-2); Eosinophils Absolute Auto 100 /uL (0-450); Eosinophils Percent Auto 1.3 % (2-4); Hematocrit 33.4 % (36-46); Hemoglobin 11.4 g/dL (12.0-16.0); Lymphocytes Absolute Auto 700 /uL (1100-4500); Lymphocytes Percent Auto 7.9 % (25-40); Mean Corpuscular HGB Conc 34.1 % (30-36); Mean Corpuscular Hemoglobin 32.8 PG (26-34); Mean Corpuscular Volume 96.3 fL (80-100); Monocytes Absolute Auto 1000 /uL (0-900); Monocytes Percent Auto 10.2 % (3-14); Neutrophils Absolute Auto 7600 /uL (1500-7000); Neutrophils Percent Auto 80.4 % (50-75); Platelet Count 190 X10^3/uL (150-400); Red Blood Cell Count 3.47 X10^6/uL (4.0-5.2); Red Cell Distribution Width 13.8 % (11.6-14.8); White Blood Cell Count 9.5 X10^3/uL (4.5-11.0)
[2023-10-22 05:20] LABS: BUN Creatinine Ratio 15.5 (6-22); Blood Urea Nitrogen 17 mg/dL (7-17); Calcium 7.7 mg/dL (8.4-10.2); Carbon Dioxide 27 mmol/L (22-32); Chloride 104 mmol/L (98-107); Estimated Glomerular Filt Rate 50 mL/min (>60); Glucose 111 mg/dL (80-110); HEMOLYSIS < 15 (0-50); Potassium 4.4 mmol/L (3.4-5.1); Sodium 134 mmol/L (137-145)
[2023-10-22] MEDS: ACETAMINOPHEN 325 MG TABLET 650 MG PO ×4 (05:50→23:15)
[2023-10-22] MEDS: CEFAZOLIN VIAL 1 GM in SODIUM CHLORIDE 0.9% 100 ML IV (06:40)
--- NOTE | 2023-10-22 07:51 | P.PN_ITS ---
Subjective Subjective Interval history: 83 F admitted with a hip fracture. ORIF planned for today with orthopedics. Her pain is controlled today. S: Doing well today, slept well. She was minimal pain in the right hip. She has not been out of bed and on the hip yet. She is otherwise healthy. Denies any dyspnea. Exam Vital Signs (past 8 hours): - 10/22/23 00:50 10/22/23 00:50 10/22/23 05:50 Temperature 98.9 F 100.3 F H Pulse Rate 81 Respiratory Rate 16 Blood Pressure 91/37 L Pulse Oximetry 98 98 Oxygen Delivery Method Room Air Oxygen Flow Rate 0 0 10/22/23 05:55 10/22/23 06:31 Temperature 100.3 F H 97.9 F Pulse Rate 89 Respiratory Rate 14 Blood Pressure 103/43 L Pulse Oximetry 95 Oxygen Delivery Method Oxygen Flow Rate 1 Oxygen Delivery Method Room Air Oxygen Flow Rate 1 Narrative Exam Narrative: NAD, alert and oriented. Fluent speech. Lungs are clear, normal rate and effort. Heart is regular, no murmur gallop or rub. Abdomen is soft, non distended. Extremities are free of edema. Good right foot pedal pulse. Objective Labs 10/22/23 04:43 10/22/23 04:43 Labs: Laboratory Results - last 24 hr 10/21/23 10/22/23 20:51 04:43 WBC 9.5 RBC 3.47 L Hgb 11.3 L 11.4 L Hct 33.9 L 33.4 L MCV 96.3 MCH 32.8 MCHC 34.1 RDW 13.8 Plt Count 190 Neut % (Auto) 80.4 H Lymph % (Auto) 7.9 L [place] % (Auto) 10.2 Eos % (Auto) 1.3 L Baso % (Auto) 0.2 Neut # (Auto) 7600 H Lymph # (Auto) 700 L [place] # (Auto) 1000 H Eos # (Auto) 100 Baso # (Auto) 0 Sodium 134 L Potassium 4.4 Chloride 104 Carbon Dioxide 27 BUN 17 Creatinine 1.10 H Estimated GFR 50 L BUN/Creatinine Ratio 15.5 Glucose 111 H Calcium 7.7 L PFSH Social History household members: spouse and family Smoking Status: Never smoker alcohol intake: never Assessment & Plan Assessment & Plan narrative: 1. Pathologic R proximal femur fracture (osteoporosis), present on admission and active. -slipped on a tile floor with socks on. -pod 1, minimal hip pain in bed. -presumed osteoporosis. Lives with her . This has been part of the year in [place], part of the year in [place], and the rest of the year in [place]. Patient will be admitted under inpatient status given the acute hip fracture needing surgical intervention/IV pain medications and expected length of stay greater than 2 midnights Code: Full, surrogate is listed as patient's friend DVT: Lovenox daily after OR for 4 weeks or asa BID for 6 weeks if more ambulatory. Dispo: patient admitted under inpatient status. Likely discharge 10/22 or 10/23. SNF verses home with HH
[2023-10-22] MEDS: ASPIRIN EC 81 MG TABLET PO ×2 (09:49→21:14)
[2023-10-22] MEDS: DOCUSATE 100 MG CAPSULE PO (09:49)
[2023-10-22] MEDS: polyethylene glycoL 3350 17 GM POWD.PACK PO (09:50)
--- NOTE | 2023-10-22 10:05 | PT.IIE ---
Current Diagnoses Fracture of unspecified part of neck of right femur, initial encounter for closed fracture (10/19/23) Surgery Performed Operation Date: 10/21/23 13:30 Actual Procedures p Right Hip IM Nail (Long Intertroch)(Right) - Otf Mahmood MD Physical Therapy Inpatient Evaluation/Re-Eval M1 PT/OT-IP Prior Functional Status Start: 10/22/23 13:22 Freq: NEEDED Status: Active Protocol: Document 10/22/23 10:05 AB (Rec: 10/22/23 13:39 AB [id number]) Medical Review Prior Functional Status Medical History Reviewed Yes Communication able to make needs known Mobility and Gait pt stated miriam she was independent with all mobilities and ambulation without AD Activities of Daily Living and IADL's per OT note: Completely independent for all ADL,IADL, drives, and takes cares of her . Social History Household Members spouse,family Living Arrangements House Number of Floors (Floors) Two Floors Number of Stairs To Enter/Railing? pt plans to stay on main level of the house; pt has ramp to enter the house Home Environment Standard Height Toilet,Tub/ Shower,Ramp Home Equipment Front Wheel Walker,Four Wheel Walker,Manual Wheelchair, Shower Seat without Backrest, Grab Bars Near Toilet,Grab Bars In Shower Additional Social History Comment Pt has equipment but used by her . pt stated that they live in [place] during fall and at [place] for the Summer. pt takes care of her spouse; pt stated that her nephew will be staying with them for ~ 2 months and will be able to assist her and spouse M2 PT-IP Current Condition Start: 10/22/23 13:22 Freq: NEEDED Status: Active Protocol: Document 10/22/23 10:05 AB (Rec: 10/22/23 13:39 AB [id number]) Physical Therapy Current Condition Current Condition Evaluation Date 10/22/23 Treatment Diagnosis R hip fx s/p R hip ORIF; difficulty in walking Onset Date 10/19/23 M3 PT-IP Subjective Start: 10/22/23 13:22 Freq: NEEDED Status: Active Protocol: Document 10/22/23 10:05 AB (Rec: 10/22/23 13:39 AB [id number]) Subjective Physical Therapy Visit Type Type Initial Evaluation Visit Start Time 10:05 Visit Stop Time 10:55 Number of FENCE MAKING MACHINE OPERATOR Visits 0 Physical Therapy Visit Comments Patient Comments agreeable to do PT Therapy Pain Assessment Pain When Pain Assessed At Rest Pain Present Pain Present Pain Reported Location Right hip/upper Intensity 3 Scale Used increases wtih wt bearing and movement Pain Management Techniques Apply Cold,Distraction, Modification of Treatment,Re- positioning,Timing of Activity with Medications M4 PT-IP Mobility and Gait Start: 10/22/23 13:22 Freq: NEEDED Status: Active Protocol: Document 10/22/23 10:05 AB (Rec: 10/22/23 13:39 AB [id number]) PT-Bed Mobility Assessment Supine to Sit Supine to Sit Moderate Assistance,Maximum Assistance PT-Transfer Assessment Sit to and From Stand Sit to and from Stand Moderate Assistance,Maximum Assistance,1 Person Assistance ,Use of Upper Extremities Equipment Transfer Assistive Device Gait Belt,Front Wheeled Walker Orthotic/Prosthetic Devices or Brace: No Transfers Transfer Destination Chair Transfer Technique ambulated Transfer Ability Level of Assist Maximum Assistance,1 Person Assistance,Use of Upper Extremities Comments Mobility Comments pt supine in bed and agreeable to do PT. obtained PLOF and home set up from pt. post-op folder provided and reviewed contents with pt. BP in supine : 96/50. pt completed supine to sit max A and max cues. able to sit on EOB min A and cues. c/o dizziness. BP checked: 138/46. pt sat on EOB for a few mintues. completed sit to stand max A and max cues cues. pt ambulated towards the chair using FWW max A and max cues ~ 10 ft and needing to sit down. (+) R knee buckling requiring max A for recovery. needs max A and cues to cues R quads activation. pt agreed to stay up on the chair. positioned pt on the chair. call light and table placed within reach. informed pt regarding rehab and pt agreed. BP sitting on the chair at end of PT session : 100/39. Gait Assessment Gait Gait Assistance Required: Maximum Assistance,1 Person Assist Distance (Feet) 10 Able to Maintain Weight Bearing Status Yes During Gait Assistive Devices Assistive Device Gait Belt,Front Wheeled Walker Orthotic/Prosthetic Devices or Brace: No Gait Deviations General Gait Pattern Antalgic,Decreased Stride Length,Decreased Feet Clearance,Step-to Gait Factors Limiting Gait Function Factors Limiting Gait Function Decreased Activity Tolerance, Decreased Strength,Difficulty Following Directions,Limited Range of Motion,Pain,Poor Balance,Poor Safety Awareness PT-Balance Assessment Sitting Balance and Reactions Static Sitting Balance Ability Good Dynamic Sitting Balance Ability Fair Standing Balance and Reactions Static Standing Balance Ability Poor Dynamic Standing Balance Ability Poor Device Used FWW M5 PT-IP Objective Assessments Start: 10/22/23 13:22 Freq: NEEDED Status: Active Protocol: Document 10/22/23 10:05 AB (Rec: 10/22/23 13:39 AB [id number]) Orientation Orientation/Cognition Level of Alertness Alert Orientation Name,Place,Situation Safety Awareness Decreased Safety Awareness Memory Description Short Term Impaired Gross Range of Motion Lower Extremity ROM Assessment Within Functional Limits Strength Lower Extremity Strength Assessment Right Impaired Hip 3-/5 Knee 3+/5 Muscle Tone Muscle Tone WNL Yes M6 PT-IP Treatment Start: 10/22/23 13:22 Freq: NEEDED Status: Active Protocol: Document 10/22/23 10:05 AB (Rec: 10/22/23 13:39 AB [id number]) Physical Therapy Treatment Exercises Exercises Heel Slides Education Education Provided Precautions,Weight Bearing Status,Post-Op Packet,Safety M7 PT-IP Assessment and Plan Start: 10/22/23 13:22 Freq: NEEDED Status: Active Protocol: Document 10/22/23 10:05 AB (Rec: 10/22/23 13:39 AB [id number]) PT Summary Assessment and Plan Potential Rehabilitation Potential Fair Status of Condition at Evaluation Evolving Summary Impairments Pain,ROM,Strength,Balance, Coordination,Sensation,Tone, Cognition,Bed Mobility, Transfers,Gait,Activity Tolerance Assessment Summary pt is an 83 y/o F s/p fall and sustained a R hip fx. pt underwent R hip intramedullary nailing POD 1. pt is WBAT on RLE. pt requiring max A and max cues with mobility using FWW with (+) R knee buckling during ambulation requiring max A and cues for recovery. pt will require SNF rehab to improve overall strength and mobility. will continue to assess. Goals Bed Mobility Goal Standby Assistance Transfer Goal Standby Assistance,Front Wheeled Walker Gait Goal Standby Assistance,Front Wheel Walker Gait Distance 50 Other Goals improve bed mobility, transfers, ambulation using LRAD ~ 150 ft mod I Days to Meet Goals 5 Frequency of Treatment Frequency Of Treatment Twice a Day Other frequency or as tolerated Treatment Plan Physical Therapy Treatment Plan Bed Mobility Training,Transfer Training,Gait Training, Therapeutic Exercise,Balance Retraining,Post Op Education, Discharge Planning,Hot or Cold Pack,Neuromuscular Re-ed, Coordination Retraining,Manual Therapy Weight Bearing Status Weight Bearing Status Weight Bear as Tolerated Allowed Weight Bearing Amount (enter % RLE WBAT or #) (%) Recommendations To Nursing Amount of Assist Needed 2 Person Assist Discharge Recommendations PT Discharge Recommendations SNF Rehab Transportation Needs at Discharge Private Vehicle,Wheelchair/ Cabulance
[2023-10-22] MEDS: IBUPROFEN 600 MG TABLET PO ×3 (10:15→23:14)
--- NOTE | 2023-10-22 11:17 | OT.IP.EVAL ---
Current Diagnoses Fracture of unspecified part of neck of right femur, initial encounter for closed fracture (10/19/23) Surgery Performed Operation Date: 10/21/23 13:30 Actual Procedures p Right Hip IM Nail (Long Intertroch)(Right) - Otf Mahmood MD Occupational Therapy Inpatient Evaluation/Re-Eval M1 PT/OT-IP Prior Functional Status Start: 10/22/23 12:54 Freq: NEEDED Status: Active Protocol: Document 10/22/23 12:54 [facility] (Rec: 10/22/23 13:11 [facility] [id number]) Medical Review Prior Functional Status Communication Independent Mobility and Gait Independent with no devices. Activities of Daily Living and IADL's Completely independent for all ADL,IADL, drives, and takes cares of her . Social History Household Members spouse,family Living Arrangements House Number of Stairs To Enter/Railing? Pt states can stay on the one floor if needed. Pt has a ramp to enter the house. Home Environment Standard Height Toilet,Tub/ Shower,Ramp Home Equipment Front Wheel Walker,Four Wheel Walker,Manual Wheelchair, Shower Seat without Backrest, Grab Bars Near Toilet,Grab Bars In Shower Additional Social History Comment Pt has equipment but used by her . M2 OT-IP Current Condition Start: 10/22/23 12:54 Freq: Status: Active Protocol: Document 10/22/23 12:54 [facility] (Rec: 10/22/23 13:11 [facility] [id number]) Occupational Therapy Current Condition Current Condition Evaluation Date 10/22/23 Treatment Diagnosis S/P IM nailing of intertrochanteric right femur fracture Diagnosis Onset Date 10/19/23 Weight Bearing Status Weight Bearing Status Weight Bear as Tolerated M3 OT- IP Subjective and Pain Start: 10/22/23 12:54 Freq: Status: Active Protocol: Document 10/22/23 12:54 [facility] (Rec: 10/22/23 13:11 [facility] [id number]) OT- Subjective Occupational Therapy Visit Type Type Initial Evaluation Visit Start Time 11:17 Visit Stop Time 12:07 Occupational Therapy Visit Comments Patient Comments Pt agreed to get up for OT eval. Patient/Caregiver Goals TO get better. OT Pain Assessment Pain When Pain Assessed During Mobility Pain Present Pain Present Pain Reported Location Right hip/upper Intensity 2 Scale Used Numeric (0 - 10) M4 OT- IP ADL's Start: 10/22/23 12:54 Freq: Status: Active Protocol: Document 10/22/23 12:54 [facility] (Rec: 10/22/23 13:11 [facility] [id number]) OT [id number] General Evaluation Self-Feeding Ability Independent OT ADL-Grooming General Evaluation Areas Needing Assistance Retrieving/Set-up of Grooming Items Comments OT Grooming Comments Pt able to do while seated after set-up. OT ADL-Oral Care General Eval Oral Care Ability Independent OT ADL-Dressing General Eval Lower Body Dressing Ability Maximum Assistance Comments OT Dressing Comments Educated pt on use of vehicle sales professional to assist for LB dressing needs. Educated to dress the RLE first and take out last. OT ADL-Toileting General Evaluation Toileting Ability Total Assistance Areas Needing Assistance Empty Catheter or Colostomy Comments OT Toileting Comments Parada in place. Pt would benefit from BSC. OT ADL-Bathing Comments OT Bathing Comments Sponge off more appropriate at this time due to low BP and unsteady on her feet. M5 OT- IP IADL's Start: 10/22/23 12:54 Freq: Status: Active Protocol: Document 10/22/23 12:54 [facility] (Rec: 10/22/23 13:11 [facility] [id number]) OT-Instrumental Activities of Daily Living Deficits IADL Deficits Identified Deficits Home Safety Awareness Awareness of Need for Assistance at Home Good Awareness Ability to Problem Solve Emergency Able to Problem Solve Situations Home Safety Comments At this time pt will need assist for all needs. Pt is a little groggy yet from surgery . M6 OT- IP Functional Cognition Start: 10/22/23 12:54 Freq: Status: Active Protocol: Document 10/22/23 12:54 [facility] (Rec: 10/22/23 13:11 [facility] [id number]) Cognitive Factors Limiting Selfcare Function Cognitive Ability Level of Alertness Alert Patient Orientation Name,Age,Birthday,Month,Date, Year,Day of Week,Place, Situation Attention Span Ability Capable of Focused Attention, Capable of Sustained Attention Ability to Follow Commands Able to Follow One Step Commands Cognitive Comments Cognitive Assessment Comments Pt needing vc for safety and FWW use. Pt still a little groggy and also hard of hearing. Pt tends to anticipate having pain when coming to stand and educated her to focus on standing up. OT- Vision and Hearing OT- Hearing Assessment OT- Hearing Assessment Hearing Impaired OT- Vision Assessment Visual Acuity Glasses For Reading Vision Assessment Comments At times pt is hard of hearing . M7 OT- IP Mobility and Balance Start: 10/22/23 12:54 Freq: Status: Active Protocol: Document 10/22/23 12:54 [facility] (Rec: 10/22/23 13:11 [facility] [id number]) OT-Transfer Assessment Sit to and From Stand Sit to and from Stand Maximum Assistance Comments Mobility Comments MAX AX1 to stand and MAX vc for safety. OT- Balance Assessment Sitting Balance and Reactions Static Sitting Balance Ability Good Dynamic Sitting Balance Ability Good Standing Balance and Reactions Static Standing Balance Ability Poor M8 OT- IP Objective Assessments Start: 10/22/23 12:54 Freq: Status: Active Protocol: Document 10/22/23 12:54 [facility] (Rec: 10/22/23 13:11 [facility] [id number]) OT Gross Range of Motion Upper Extremity Range of Motion Assessment Within Functional Limits OT Strength Upper Extremity Strength Assessment Within Functional Limits M9 OT- IP Assessment and Plan Start: 10/22/23 12:54 Freq: Status: Active Protocol: Document 10/22/23 12:54 [facility] (Rec: 10/22/23 13:11 [facility] [id number]) OT Summary Assessment and Plan Potential Rehabilitation Potential Good Analytic Complexity at Evaluation Low Summary OT Impairments Pain,Balance,Functional Mobility,Grooming,Dressing, Toileting,Bathing,Toilet Transfers,Shower Transfers, Activity Tolerance Progress Towards Goals Progressing Toward Goals Assessment Summary Pt MOD complexity and main barriers are pain, having difficulty with transitions, and now needing 1-2 person assist for ADL and mobility needs. Pt will greatly benefit from skilled rehab prior to going home. Prior pt was completely independent and taking care for her . Goals Grooming Goal Independent Dressing Goal Independent,Long Handled Shoe Horn,Coordinator Of Genetic Services,Sock Aid Toileting Goal Independent Bathing Goal Minimal Assistance Toilet Transfer Goal Independent Shower Transfer Goal Minimal Assistance Days to Meet Goals 20 Frequency of Treatment Frequency Of Treatment Once a Day Treatment Plan OT Treatment Plan ADL Training,Functional Mobility,Patient/Family Education,Discharge Planning Other Treatment Recommendations and Next Transfer to [facility] with MODA X 1 Treatment Focus and FWW. Discharge Recommendations OT Discharge Recommendations SNF Rehab Transportation Needs at Discharge Wheelchair/Cabulance
--- NOTE | 2023-10-22 12:17 | PM.PNPO.1 ---
Subjective Subjective Date Patient Seen: 10/22/23 Time Patient Seen: 12:17 Interval history: Pain is [id number]. No fever or chills. Exam Vital Signs (past 8 hours): - 10/22/23 05:50 10/22/23 05:55 10/22/23 06:31 Temperature 100.3 F H 100.3 F H 97.9 F Pulse Rate 89 Respiratory Rate 14 Blood Pressure 103/43 L Pulse Oximetry 95 Oxygen Flow Rate 1 10/22/23 09:00 10/22/23 09:15 Temperature 98.5 F Pulse Rate 91 H Respiratory Rate 18 Blood Pressure 106/42 L Pulse Oximetry 91 Oxygen Flow Rate Oxygen Delivery Method Room Air Oxygen Flow Rate 1 Narrative Exam Narrative: 83-year-old female sitting in bedside chair in no apparent distress. Dressings are clean, dry and intact. Motor functions intact bilateral lower extremities. Sensation grossly intact to light touch bilateral lower extremities. Const General: cooperative and comfortable Orientation: alert Objective Labs 10/22/23 04:43 10/22/23 04:43 Labs: Laboratory Results - last 24 hr 10/21/23 10/22/23 20:51 04:43 WBC 9.5 RBC 3.47 L Hgb 11.3 L 11.4 L Hct 33.9 L 33.4 L MCV 96.3 MCH 32.8 MCHC 34.1 RDW 13.8 Plt Count 190 Neut % (Auto) 80.4 H Lymph % (Auto) 7.9 L [place] % (Auto) 10.2 Eos % (Auto) 1.3 L Baso % (Auto) 0.2 Neut # (Auto) 7600 H Lymph # (Auto) 700 L [place] # (Auto) 1000 H Eos # (Auto) 100 Baso # (Auto) 0 Sodium 134 L Potassium 4.4 Chloride 104 Carbon Dioxide 27 BUN 17 Creatinine 1.10 H Estimated GFR 50 L BUN/Creatinine Ratio 15.5 Glucose 111 H Calcium 7.7 L PFSH Social History household members: spouse and family Smoking Status: Never smoker alcohol intake: never Assessment & Plan Post-op Postoperative Procedures: Procedures Operation Date: 10/21/23 13:30 Actual Procedure Side Surgeon p Right Hip IM Nail (Long Intertroch) Right Otf Mahmood MD Postoperative day: 1 Postoperative status narrative: Stable status post intramedullary nailing of intertrochanteric right femur fracture October 21, 2023 Postoperative plan narrative: Weight-bearing as tolerated Aspirin 81 mg b.i.d. for DVT prophylaxis Multimodal pain management Follow up outpatient orthopedic clinic in 2 weeks Disposition per hospitalist
--- NOTE | 2023-10-22 16:10 | PC.NURSE ---
PATIENT IS MOVING WELL, SBA TO BSC A COUPLE TIME WITH BM RESULTS
--- NOTE | 2023-10-22 16:20 | CM.DPNOTE ---
DCP Note RN PALLIATIVE CARE reviewed EMR. Attempted to meet with pt multiple times- either working with therapy teams or utilizing rest room. Per hospitalist in morning rounds, 3 months of the year pt lives on [place], 3 months of the year [place], and 3 months of the year [place]. Per PT/OT, rec SNF placement. Per nursing note, pt moving well and has been SBA to bedside commode multiple times for BM. Per previous CM notes, pt had been open to SNF placement prior to surgery pending anticipated length of recovery time. RN PALLIATIVE CARE completed PASRR in anticipation of SNF. INS: [facility] and Medicare. Medicare listed as second? Unsure SNF process for [facility] vs accepting facilities. P: SNF current rec, referral needed. PASRR completed. CM team will f/u for patient preferences/continued DCP recommendations. MAYLIN Araiza
[2023-10-22] MEDS: SODIUM CHLORIDE 0.9% FLUSH 10 ML IV (21:14)
[2023-10-23] VITALS (8 sets, daily range): BP systolic 108–138; BP diastolic 40–62; PULSE 70–88; RESP 16–20; TEMP 36.3–36.8; O2SAT 96–99
[2023-10-23] MEDS: IBUPROFEN 600 MG TABLET PO ×4 (05:24→23:50)
[2023-10-23] MEDS: ACETAMINOPHEN 325 MG TABLET 650 MG PO ×4 (05:24→23:51)
[2023-10-23] MEDS: ASPIRIN EC 81 MG TABLET PO ×2 (08:28→20:56)
[2023-10-23] MEDS: SODIUM CHLORIDE 0.9% FLUSH 10 ML IV ×2 (10:10→20:57)
[2023-10-23] MEDS: HYDROCODONE/ACET 5/325 TABLET 1 TAB PO ×2 (10:12→15:54)
--- NOTE | 2023-10-23 10:23 | OT.IP.TRT ---
Current Diagnoses Fracture of unspecified part of neck of right femur, initial encounter for closed fracture (10/19/23) Surgery Performed Operation Date: 10/21/23 13:30 Actual Procedures p Right Hip IM Nail (Long Intertroch)(Right) - Otf Mahmood MD Occupational Therapy Treatment Note M2 OT-IP Current Condition Start: 10/22/23 12:54 Freq: Status: Active Protocol: Document 10/22/23 12:54 [facility] (Rec: 10/22/23 13:11 [facility] [id number]) Occupational Therapy Current Condition Current Condition Evaluation Date 10/22/23 Treatment Diagnosis S/P IM nailing of intertrochanteric right femur fracture Diagnosis Onset Date 10/19/23 Weight Bearing Status Weight Bearing Status Weight Bear as Tolerated M3 OT- IP Subjective and Pain Start: 10/22/23 12:54 Freq: Status: Active Protocol: Document 10/23/23 11:24 [facility] (Rec: 10/23/23 11:35 [facility] [id number]) OT- Subjective Occupational Therapy Visit Type Type Treatment Note Visit Start Time 10:23 Visit Stop Time 11:17 Occupational Therapy Visit Comments Patient Comments Pt wanting to shower. Patient/Caregiver Goals TO get better. OT Pain Assessment Pain When Pain Assessed During Mobility Pain Present Pain Present Pain Reported Location Right hip/upper Intensity 4 Scale Used Numeric (0 - 10) M4 OT- IP ADL's Start: 10/22/23 12:54 Freq: Status: Active Protocol: Document 10/23/23 11:24 [facility] (Rec: 10/23/23 11:35 [facility] [id number]) OT NEG-Jdbk-Ebxmiks General Evaluation Self-Feeding Ability Independent OT ADL-Grooming Comments OT Grooming Comments Not performed. OT ADL-Oral Care Comments Oral Care Comments Not performed. OT ADL-Dressing General Eval Lower Body Dressing Ability Minimal Assistance Comments OT Dressing Comments Able to use field traffic investigator and sock aid to gayatri/doff her socks. Pt needing GURPREET to help pull up her brief in the back. OT ADL-Toileting Comments OT Toileting Comments Noted redness between her bottom cheeks and nursing notified so able to get skin protectant on her. Pt states also had an explosive bowel movement yesterday. OT ADL-Bathing General Evaluation Bathing Ability Moderate Assistance Comments OT Bathing Comments Assist for her feet, back, and pericare areas for completeness. Pt needing to use the grab bars to stand with CGA for balance in addition to therapist to assist with her showering needs. M5 OT- IP IADL's Start: 10/22/23 12:54 Freq: Status: Active Protocol: Document 10/22/23 12:54 [facility] (Rec: 10/22/23 13:11 [facility] [id number]) OT-Instrumental Activities of Daily Living Deficits IADL Deficits Identified Deficits Home Safety Awareness Awareness of Need for Assistance at Home Good Awareness Ability to Problem Solve Emergency Able to Problem Solve Situations Home Safety Comments At this time pt will need assist for all needs. Pt is a little groggy yet from surgery . M6 OT- IP Functional Cognition Start: 10/22/23 12:54 Freq: Status: Active Protocol: Document 10/23/23 11:24 [facility] (Rec: 10/23/23 11:35 [facility] [id number]) Cognitive Factors Limiting Selfcare Function Cognitive Comments Cognitive Assessment Comments Pt able to follow commands but needs reassurance and encouragement. Pt tends to want to side step and educated her to move the FWW and then her RLE and then LLE. M7 OT- IP Mobility and Balance Start: 10/22/23 12:54 Freq: Status: Active Protocol: Document 10/23/23 11:24 [facility] (Rec: 10/23/23 11:35 [facility] [id number]) OT-Transfer Assessment Sit to and From Stand Sit to and from Stand Contact Guard Assistance, Minimal Assistance,Moderate Assistance Transfers Transfer Ability Minimal Assistance Technique Transfer Destination Chair,Shower Stall Transfer Technique Stand Pivot Devices Transfer Assistive Devices Gait Belt Comments Mobility Comments Pt needing from CGA to MODA to stand depending of height of surface and what pt is able to push up from. GURPREET to help step over the threshold of the shower at this time. Encouraging pt to try to put more weight on her RLE when up on her feet and walking with the FWW with assist. OT- Balance Assessment Sitting Balance and Reactions Static Sitting Balance Ability Good Dynamic Sitting Balance Ability Good Standing Balance and Reactions Static Standing Balance Ability Fair Dynamic Standing Balance Ability Fair M8 OT- IP Objective Assessments Start: 10/22/23 12:54 Freq: Status: Active Protocol: Document 10/22/23 12:54 [facility] (Rec: 10/22/23 13:11 [facility] [id number]) OT Gross Range of Motion Upper Extremity Range of Motion Assessment Within Functional Limits OT Strength Upper Extremity Strength Assessment Within Functional Limits M9 OT- IP Assessment and Plan Start: 10/22/23 12:54 Freq: Status: Active Protocol: Document 10/23/23 11:24 [facility] (Rec: 10/23/23 11:35 [facility] [id number]) OT Summary Assessment and Plan Potential Rehabilitation Potential Good Analytic Complexity at Evaluation Low Summary OT Impairments Pain,Balance,Functional Mobility,Grooming,Dressing, Toileting,Bathing,Toilet Transfers,Shower Transfers, Activity Tolerance Progress Towards Goals Progressing Toward Goals Assessment Summary Pt much improved today but still needing one person assist for ADL and mobility needs. Pt will greatly benefit from skilled rehab when medically stable. Goals Grooming Goal Independent Dressing Goal Independent,Long Handled Shoe Horn,Osteopathic Medicine Teacher,Sock Aid Toileting Goal Independent Bathing Goal Minimal Assistance Toilet Transfer Goal Independent Shower Transfer Goal Standby Assistance Days to Meet Goals 19 Frequency of Treatment Frequency Of Treatment Once a Day Treatment Plan OT Treatment Plan ADL Training,Functional Mobility,Patient/Family Education,Discharge Planning Other Treatment Recommendations and Next Pt able to trailhead maintenance worker front of Treatment Focus the sink with FWW and equal weight on BLE to be able to do all oral care needs independently. Discharge Recommendations OT Discharge Recommendations SNF Rehab Transportation Needs at Discharge Wheelchair/Cabulance
--- NOTE | 2023-10-23 11:24 | PM.PNPO.1 ---
Subjective Subjective Date Patient Seen: 10/23/23 Time Patient Seen: 11:25 Interval history: Dina Figueroa is sitting up in a chair, having just had a shower. She has been walking around quite a bit already this morning. She c/o pain but it is well-controlled with current regimen. She is working out specifics for discharge. Her primary residence is in [place], but she and her spend summer months on [place] and the winter in [place]. He has progressive supranuclear palsy, and due to his deterioration, this was to be their last trip to [place] before returning to [place] in the fall where she has arranged care for him; currently, she is his primary caregiver. Exam Vital Signs (past 8 hours): - 10/23/23 04:00 10/23/23 07:45 Temperature 97.6 F 97.5 F L Pulse Rate 82 78 Respiratory Rate 17 20 Blood Pressure 120/58 L 117/55 L Pulse Oximetry 96 98 Oxygen Flow Rate 0 Fraction of Inspired Oxygen 21 Oxygen Delivery Method Room Air Oxygen Flow Rate 0 Narrative Exam Narrative: 4/5 hip flexors, quadriceps, hamstrings; 5/5 DF, PF, EHL on right. Sensation to light touch intact throughout RLE. Calf soft and compressible. Dressings changed after shower are CDI. Objective Labs 10/22/23 04:43 10/22/23 04:43 PFS Social History household members: spouse and family Smoking Status: Never smoker alcohol intake: never Assessment & Plan Post-op Assessment and plan (1) Closed fracture of right hip: Assessment and Plan narrative: 1) Continue PT. Weightbearing as tolerated to right leg. 2) ASA 81mg BID x 4 weeks for VTE prophylaxis. 3) If she remains local, she can follow up with our office in 2 weeks for a wound check. Otherwise, lincoln can be removed at another facility in 10-14 days after surgery. If dressings become wet or dirty, they can be removed and replaced with clean, dry gauze. No bathing or otherwise soaking incisions or applying any creams, lotions, or ointments to them until they are completely healed. 4) Pain control and disposition per hospitalist service. Postoperative Procedures: Procedures Operation Date: 10/21/23 13:30 Actual Procedure Side Surgeon p Right Hip IM Nail (Long Intertroch) Right Otf Mahmood MD Postoperative day: 2
--- NOTE | 2023-10-23 11:55 | PT.IPTN ---
Current Diagnoses Fracture of unspecified part of neck of right femur, initial encounter for closed fracture (10/19/23) Surgery Performed Operation Date: 10/21/23 13:30 Actual Procedures p Right Hip IM Nail (Long Intertroch)(Right) - Otf Mahmood MD Physical Therapy Treatment Note M2 PT-IP Current Condition Start: 10/22/23 13:22 Freq: NEEDED Status: Active Protocol: Document 10/22/23 10:05 AB (Rec: 10/22/23 13:39 AB [id number]) Physical Therapy Current Condition Current Condition Evaluation Date 10/22/23 Treatment Diagnosis R hip fx s/p R hip ORIF; difficulty in walking Onset Date 10/19/23 M3 PT-IP Subjective Start: 10/22/23 13:22 Freq: NEEDED Status: Active Protocol: Document 10/23/23 12:41 TS (Rec: 10/23/23 12:48 TS [id number]) Subjective Physical Therapy Visit Type Type Treatment Note Visit Start Time 11:55 Visit Stop Time 12:25 Number of CHAMBER MAGISTRATE Visits 1 Physical Therapy Visit Comments Patient Comments Pt found resting in chair, is agreeable to PT. Therapy Pain Assessment Pain When Pain Assessed During Mobility Pain Present Pain Present Pain Reported M4 PT-IP Mobility and Gait Start: 10/22/23 13:22 Freq: NEEDED Status: Active Protocol: Document 10/23/23 12:41 TS (Rec: 10/23/23 12:48 TS [id number]) PT-Transfer Assessment Sit to and From Stand Sit to and from Stand Contact Guard Assistance, Minimal Assistance Equipment Transfer Assistive Device Gait Belt,Front Wheeled Walker Orthotic/Prosthetic Devices or Brace: No Comments Mobility Comments Pt performed quad sets, glute sets, heel slides and ankle pumps prior to mobility. STS from chair CGA/Bernabe for balance with FWW. Pt ambulated CGA with FWW and a step to gait ~25', had no buckling or LOB. She mabulated bakc to chair, required cues for slow eccentric control. Pt was left in chair, all needs met. Gait Assessment Gait Gait Assistance Required: Contact Guard Assist,1 Person Assist Distance (Feet) 25 Able to Maintain Weight Bearing Status Yes During Gait Assistive Devices Assistive Device Gait Belt,Front Wheeled Walker Orthotic/Prosthetic Devices or Brace: No Gait Deviations General Gait Pattern Antalgic,Decreased Stride Length,Decreased Feet Clearance,Step-to Gait Factors Limiting Gait Function Factors Limiting Gait Function Decreased Activity Tolerance, Decreased Strength,Difficulty Following Directions,Limited Range of Motion,Pain,Poor Balance,Poor Safety Awareness PT-Balance Assessment Sitting Balance and Reactions Static Sitting Balance Ability Good Dynamic Sitting Balance Ability Good Standing Balance and Reactions Static Standing Balance Ability Good Dynamic Standing Balance Ability Fair Device Used FWW M5 PT-IP Objective Assessments Start: 10/22/23 13:22 Freq: NEEDED Status: Active Protocol: Document 10/22/23 10:05 AB (Rec: 10/22/23 13:39 AB [id number]) Orientation Orientation/Cognition Level of Alertness Alert Orientation Name,Place,Situation Safety Awareness Decreased Safety Awareness Memory Description Short Term Impaired Gross Range of Motion Lower Extremity ROM Assessment Within Functional Limits Strength Lower Extremity Strength Assessment Right Impaired Hip 3-/5 Knee 3+/5 Muscle Tone Muscle Tone WNL Yes M6 PT-IP Treatment Start: 10/22/23 13:22 Freq: NEEDED Status: Active Protocol: Document 10/23/23 12:41 TS (Rec: 10/23/23 12:48 TS [id number]) Physical Therapy Treatment Exercises Exercises Ankle Pumps,Gluteal Sets,Quad Sets,Heel Slides Education Education Provided Precautions,Weight Bearing Status,Post-Op Packet,Safety M7 PT-IP Assessment and Plan Start: 10/22/23 13:22 Freq: NEEDED Status: Active Protocol: Document 10/23/23 12:41 TS (Rec: 10/23/23 12:48 TS [id number]) PT Summary Assessment and Plan Potential Rehabilitation Potential Fair Summary Impairments Pain,ROM,Strength,Balance, Coordination,Sensation,Tone, Cognition,Bed Mobility, Transfers,Gait,Activity Tolerance Progress Towards Goals Progressing Toward Goals Assessment Summary Dina Figueroa is making good progress with her mobility. She performed STS CGA/Bernabe with use of FWW. She progressed her gait to ~25' with use of FWW. PT will continue to recommend SNF. Goals Bed Mobility Goal Standby Assistance Transfer Goal Standby Assistance,Front Wheeled Walker Gait Goal Standby Assistance,Front Wheel Walker Gait Distance 50 Other Goals improve bed mobility, transfers, ambulation using LRAD ~ 150 ft mod I Days to Meet Goals 5 Frequency of Treatment Frequency Of Treatment Twice a Day Treatment Plan Physical Therapy Treatment Plan Bed Mobility Training,Transfer Training,Gait Training, Therapeutic Exercise,Balance Retraining,Post Op Education, Discharge Planning,Hot or Cold Pack,Neuromuscular Re-ed, Coordination Retraining,Manual Therapy Weight Bearing Status Weight Bearing Status Weight Bear as Tolerated Allowed Weight Bearing Amount (enter % RLE WBAT or #) (%) Recommendations To Nursing Amount of Assist Needed 1 Person Assist Discharge Recommendations PT Discharge Recommendations SNF Rehab Transportation Needs at Discharge Private Vehicle,Wheelchair/ Cabulance
--- NOTE | 2023-10-23 13:29 | PM.PN.1 ---
Subjective Subjective Date Patient Seen: 10/23/23 Time Patient Seen: 10:40 Exam Vital Signs (past 8 hours): - 10/23/23 07:45 Temperature 97.5 F L Pulse Rate 78 Respiratory Rate 20 Blood Pressure 117/55 L Pulse Oximetry 98 Oxygen Flow Rate 0 Fraction of Inspired Oxygen 21 Oxygen Delivery Method Room Air Oxygen Flow Rate 0 Objective Labs 10/22/23 04:43 10/22/23 04:43 [facility] Social History household members: spouse and family Smoking Status: Never smoker alcohol intake: never Assessment & Plan Time-Based Coding :: [TOTAL MINUTES] spent with patient and on the chart (including review of chart, obtaining history, exam, reviewing outside data, placing orders, documenting exam and treatment plan, and counseling patient) on [DATE].
--- NOTE | 2023-10-23 14:27 | P.PN_ITS ---
Subjective Subjective Date Patient Seen: 10/23/23 Time Patient Seen: 11:00 Interval history: The patient is up with physical therapy, stating she feels much steadier. No chest pain, shortness of breath or other complaints. Exam Vital Signs (past 8 hours): - 10/23/23 07:45 10/23/23 12:00 Temperature 97.5 F L 97.4 F L Pulse Rate 78 88 Respiratory Rate 20 20 Blood Pressure 117/55 L 119/49 L Pulse Oximetry 98 99 Oxygen Flow Rate 0 0 Fraction of Inspired Oxygen 21 Oxygen Delivery Method Room Air Oxygen Flow Rate 0 Narrative Exam Narrative: NAD, alert and oriented. Fluent speech. Lungs are clear, normal rate and effort. Heart is regular, no murmur gallop or rub. Abdomen is soft, non distended. Extremities are free of edema. Right hip bandage in place, clean, dry and intact Objective Labs 10/22/23 04:43 10/22/23 04:43 [facility] Social History household members: spouse and family Smoking Status: Never smoker alcohol intake: never Assessment & Plan Assessment & Plan narrative: 1. Pathologic R proximal femur fracture (osteoporosis), present on admission and active. -slipped on a tile floor with socks on. -pod 2, minimal hip pain in bed. -presumed osteoporosis. Lives with her who has significant impairment and requires care giving himself. This has been part of the year in [place], part of the year in [place], and the rest of the year in [place]. Patient is admitted under inpatient status given the acute hip fracture needing surgical intervention/IV pain medications and expected length of stay greater than 2 midnights Code: Full, surrogate is listed as patient's friend DVT prophylaxis: Asa BID for 6 weeks. Dispo: patient admitted under inpatient status. Likely discharge 10/23. SNF verses home with Time-Based Coding :: [TOTAL MINUTES] spent with patient and on the chart (including review of chart, obtaining history, exam, reviewing outside data, placing orders, documenting exam and treatment plan, and counseling patient) on [DATE]. PROFEE Charge codes Subsequent inpatient/observation care: [id number]
--- NOTE | 2023-10-23 14:29 | CM.DPC ---
Addendum entered by MAYLIN Curtis 10/23/23 15:47: ADD: Return email from Maryann at [facility] confirming they could accept pt if [facility] not an option at d/c. [facility] and [facility] still reviewing. BF Original Note: DCP SNF Planning: Per MD and Ortho, pt tolerated surgery well and to work more with PT/OT to determine discharge planning needs. Per PT/OT, pt making progress and was assisted with shower today and still recommending SNF rehab before safe return home with spouse who has Parkinsons and memory issues. SW met bedside with pt and explained role and pt very pleasant and communicative and confirms that she does not feel that her spouse can manage her needs at home at this time and she hired a CG to assist her spouse 3-4 days a week on [place] and has been arranging LTC for him back in [place] when they go to their winter home in the Fall. Pt unsure if she has Medicare and then [employer] supplemental vs [employer] MCR Adv plan and will contact her insurance lili today as she does not have a copy or her insurance cards on her. SW provided the SNF Choice list to review and discussed that SNF options would depend on if she has a managed Medicare plan or straight Medicare and pt acknowledged understanding. Currently her preference would be [facility] due to location closest to [place] but aware that [facility] might not be able to accept her insurance if [employer]. ERICK made initial referrals to [facility], [facility], and [facility] and requested review to see if they can help determine what insurance pt currently has and which could accept. PASRR previously completed in anticipation of SNF. Plan: SW to follow closely for [facility], [facility], [facility] review and discussion with pt to determine what insurance patient has (managed plan vs straight Medicare). MAYLIN Curtis
--- NOTE | 2023-10-23 14:35 | PT.IPTN ---
Current Diagnoses Fracture of unspecified part of neck of right femur, initial encounter for closed fracture (10/19/23) Surgery Performed Operation Date: 10/21/23 13:30 Actual Procedures p Right Hip IM Nail (Long Intertroch)(Right) - Otf Mahmood MD Physical Therapy Treatment Note M2 PT-IP Current Condition Start: 10/22/23 13:22 Freq: NEEDED Status: Active Protocol: Document 10/22/23 10:05 AB (Rec: 10/22/23 13:39 AB [id number]) Physical Therapy Current Condition Current Condition Evaluation Date 10/22/23 Treatment Diagnosis R hip fx s/p R hip ORIF; difficulty in walking Onset Date 10/19/23 M3 PT-IP Subjective Start: 10/22/23 13:22 Freq: NEEDED Status: Active Protocol: Document 10/23/23 15:13 TS (Rec: 10/23/23 15:37 TS [id number]) Subjective Physical Therapy Visit Type Type Treatment Note Visit Start Time 14:35 Visit Stop Time 15:00 Number of REAL ESTATE FIRM MANAGER Visits 2 Physical Therapy Visit Comments Patient Comments Pt found resting in chair, would like to get up to bathroom, is agreeable to PT. Therapy Pain Assessment Pain When Pain Assessed During Mobility Pain Present Pain Present Pain Reported M4 PT-IP Mobility and Gait Start: 10/22/23 13:22 Freq: NEEDED Status: Active Protocol: Document 10/23/23 15:13 TS (Rec: 10/23/23 15:37 TS [id number]) PT-Transfer Assessment Sit to and From Stand Sit to and from Stand Contact Guard Assistance Equipment Transfer Assistive Device Gait Belt,Front Wheeled Walker Orthotic/Prosthetic Devices or Brace: No Comments Mobility Comments STS from chair CGA with FWW, pt demonstrates good carryover of sequencing. She ambulated to toilet ~10'SBA with FWW, pt performed own pericare. She ambulated in hallway ~150'SBA with slow step to gait, had no buckling or LOB. pt ambulated back to room, sat in chair. She performed ankle pumps, quad sets, glute sets and heel slides. Pt was left in chair, all needs met. Gait Assessment Gait Gait Assistance Required: Contact Guard Assist,1 Person Assist Distance (Feet) 160 Able to Maintain Weight Bearing Status Yes During Gait Assistive Devices Assistive Device Gait Belt,Front Wheeled Walker Orthotic/Prosthetic Devices or Brace: No Gait Deviations General Gait Pattern Antalgic,Decreased Stride Length,Decreased Feet Clearance,Step-to Gait Factors Limiting Gait Function Factors Limiting Gait Function Decreased Activity Tolerance, Decreased Strength,Difficulty Following Directions,Limited Range of Motion,Pain,Poor Balance,Poor Safety Awareness PT-Balance Assessment Sitting Balance and Reactions Static Sitting Balance Ability Good Dynamic Sitting Balance Ability Good Standing Balance and Reactions Static Standing Balance Ability Good Dynamic Standing Balance Ability Fair Device Used FWW M5 PT-IP Objective Assessments Start: 10/22/23 13:22 Freq: NEEDED Status: Active Protocol: Document 10/22/23 10:05 AB (Rec: 10/22/23 13:39 AB [id number]) Orientation Orientation/Cognition Level of Alertness Alert Orientation Name,Place,Situation Safety Awareness Decreased Safety Awareness Memory Description Short Term Impaired Gross Range of Motion Lower Extremity ROM Assessment Within Functional Limits Strength Lower Extremity Strength Assessment Right Impaired Hip 3-/5 Knee 3+/5 Muscle Tone Muscle Tone WNL Yes M6 PT-IP Treatment Start: 10/22/23 13:22 Freq: NEEDED Status: Active Protocol: Document 10/23/23 15:13 TS (Rec: 10/23/23 15:37 TS [id number]) Physical Therapy Treatment Exercises Exercises Ankle Pumps,Gluteal Sets,Quad Sets,Heel Slides Education Education Provided Precautions,Weight Bearing Status,Post-Op Packet,Safety M7 PT-IP Assessment and Plan Start: 10/22/23 13:22 Freq: NEEDED Status: Active Protocol: Document 10/23/23 15:13 TS (Rec: 10/23/23 15:37 TS [id number]) PT Summary Assessment and Plan Potential Rehabilitation Potential Fair Summary Impairments Pain,ROM,Strength,Balance, Coordination,Sensation,Tone, Cognition,Bed Mobility, Transfers,Gait,Activity Tolerance Progress Towards Goals Progressing Toward Goals Assessment Summary Dina Figueroa continues to make progress with her mobility. She CGA for STS with FWW x2. She progressed her gait to ~ 160'SBA with a step to gait. She is heavy handed on FWW with gait, she does demonstrate increased wbering on RLE this session. PT continues to recommend SNF. Goals Bed Mobility Goal Standby Assistance Transfer Goal Standby Assistance,Front Wheeled Walker Gait Goal Standby Assistance,Front Wheel Walker Gait Distance 50 Other Goals improve bed mobility, transfers, ambulation using LRAD ~ 150 ft mod I Days to Meet Goals 5 Frequency of Treatment Frequency Of Treatment Twice a Day Treatment Plan Physical Therapy Treatment Plan Bed Mobility Training,Transfer Training,Gait Training, Therapeutic Exercise,Balance Retraining,Post Op Education, Discharge Planning,Hot or Cold Pack,Neuromuscular Re-ed, Coordination Retraining,Manual Therapy Weight Bearing Status Weight Bearing Status Weight Bear as Tolerated Allowed Weight Bearing Amount (enter % RLE WBAT or #) (%) Recommendations To Nursing Amount of Assist Needed 1 Person Assist Discharge Recommendations PT Discharge Recommendations SNF Rehab Transportation Needs at Discharge Private Vehicle,Wheelchair/ Cabulance
[2023-10-24 04:32] VITALS: BP 127/62; PULSE 88; RESP 16; TEMP 37.1; O2SAT 97
[2023-10-24] MEDS: ACETAMINOPHEN 325 MG TABLET 650 MG PO ×2 (06:20→11:31)
[2023-10-24] MEDS: IBUPROFEN 600 MG TABLET PO ×2 (06:20→11:30)
[2023-10-24 08:00] VITALS: BP 116/57; PULSE 73; RESP 18; TEMP 36.6; O2SAT 96
[2023-10-24] MEDS: SODIUM CHLORIDE 0.9% FLUSH 10 ML IV (08:08)
[2023-10-24] MEDS: ASPIRIN EC 81 MG TABLET PO (08:08)
--- NOTE | 2023-10-24 10:20 | PT.IPTN ---
Current Diagnoses Fracture of unspecified part of neck of right femur, initial encounter for closed fracture (10/19/23) Surgery Performed Operation Date: 10/21/23 13:30 Actual Procedures p Right Hip IM Nail (Long Intertroch)(Right) - Otf Mahmood MD Physical Therapy Treatment Note M2 PT-IP Current Condition Start: 10/22/23 13:22 Freq: NEEDED Status: Active Protocol: Document 10/22/23 10:05 AB (Rec: 10/22/23 13:39 AB [id number]) Physical Therapy Current Condition Current Condition Evaluation Date 10/22/23 Treatment Diagnosis R hip fx s/p R hip ORIF; difficulty in walking Onset Date 10/19/23 M3 PT-IP Subjective Start: 10/22/23 13:22 Freq: NEEDED Status: Active Protocol: Document 10/24/23 10:20 AB (Rec: 10/24/23 12:06 AB [id number]) Subjective Physical Therapy Visit Type Type Treatment Note Visit Start Time 10:20 Visit Stop Time 10:40 Number of DISTRICT MANAGER IN TRAINING Visits 0 Physical Therapy Visit Comments Patient Comments agreeable to do PT Therapy Pain Assessment Pain When Pain Assessed At Rest Pain Present Pain Present Pain Reported Location Right hip/upper Scale Used pain sclae not stated M4 PT-IP Mobility and Gait Start: 10/22/23 13:22 Freq: NEEDED Status: Active Protocol: Document 10/24/23 10:20 AB (Rec: 10/24/23 12:06 AB [id number]) PT-Transfer Assessment Sit to and From Stand Sit to and from Stand Contact Guard Assistance,1 Person Assistance Equipment Transfer Assistive Device Gait Belt,Front Wheeled Walker Orthotic/Prosthetic Devices or Brace: No Comments Mobility Comments pt sitting on the chair and agreeable to do PT. completed sit to stand CGA and ambulated ~ 125 ft using FWW CGA and cues for R quads activation. pt presents with antalgic gait with decrease RAMIN and tends to look down onto her feet during ambulation. cued to correct. pt sat back on her chair. educated on HEP. pt completed R SAQx x 5 reps x 5 sec hold. positioned pt on the chair. call light and table placed within reach. Gait Assessment Gait Gait Assistance Required: Contact Guard Assist Distance (Feet) 125 Able to Maintain Weight Bearing Status Yes During Gait Assistive Devices Assistive Device Gait Belt,Front Wheeled Walker Orthotic/Prosthetic Devices or Brace: No Gait Deviations General Gait Pattern Decreased Stride Length, Decreased Feet Clearance Factors Limiting Gait Function Factors Limiting Gait Function Decreased Activity Tolerance, Decreased Strength,Pain,Poor Balance M5 PT-IP Objective Assessments Start: 10/22/23 13:22 Freq: NEEDED Status: Active Protocol: Document 10/22/23 10:05 AB (Rec: 10/22/23 13:39 AB [id number]) Orientation Orientation/Cognition Level of Alertness Alert Orientation Name,Place,Situation Safety Awareness Decreased Safety Awareness Memory Description Short Term Impaired Gross Range of Motion Lower Extremity ROM Assessment Within Functional Limits Strength Lower Extremity Strength Assessment Right Impaired Hip 3-/5 Knee 3+/5 Muscle Tone Muscle Tone WNL Yes M6 PT-IP Treatment Start: 10/22/23 13:22 Freq: NEEDED Status: Active Protocol: Document 10/24/23 10:20 AB (Rec: 10/24/23 12:06 AB [id number]) Physical Therapy Treatment Education Education Provided Safety Other Treatments Other Treatment Performed R SAQs x 5 reps x 5 sec hold M7 PT-IP Assessment and Plan Start: 10/22/23 13:22 Freq: NEEDED Status: Active Protocol: Document 10/24/23 10:20 AB (Rec: 10/24/23 12:06 AB [id number]) PT Summary Assessment and Plan Potential Rehabilitation Potential Good Summary Impairments Pain,ROM,Strength,Balance, Coordination,Sensation,Tone, Cognition,Bed Mobility, Transfers,Gait,Activity Tolerance Progress Towards Goals Slow Progress due to Pain,Slow Progress due to Activity Tolerance Assessment Summary pt improving with mobility and requiring CGA using FWW. pt lives with spouse but pt is the caregiver for her spouse. pt needs to be more independent than current mobility to safely go home. pt will benefit from SNF rehab . Goals Bed Mobility Goal Standby Assistance Transfer Goal Standby Assistance,Front Wheeled Walker Gait Goal Standby Assistance,Front Wheel Walker Gait Distance 50 Other Goals improve bed mobility, transfers, ambulation using LRAD ~ 150 ft mod I Days to Meet Goals 5 Frequency of Treatment Frequency Of Treatment Twice a Day Treatment Plan Physical Therapy Treatment Plan Bed Mobility Training,Transfer Training,Gait Training, Therapeutic Exercise,Balance Retraining,Post Op Education, Discharge Planning,Hot or Cold Pack,Neuromuscular Re-ed, Coordination Retraining,Manual Therapy Weight Bearing Status Weight Bearing Status Weight Bear as Tolerated Allowed Weight Bearing Amount (enter % RLE WBAT or #) (%) Recommendations To Nursing Amount of Assist Needed 1 Person Assist Discharge Recommendations PT Discharge Recommendations SNF Rehab Transportation Needs at Discharge Private Vehicle,Wheelchair/ Cabulance
--- NOTE | 2023-10-24 11:12 | PM.PNPO.1 ---
Subjective Subjective Interval history: Dina Figueroa is a pleasant 83 year old female who is POD#3 s/p Intramedullary nailing of intertrochanteric right femur fracture by Dr. Mahmood. She states overall she is doing well and has a positive mindset. Her pain is moderate-severe but well controlled w/ her current pain regiment. 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 Home base is [facility] but they live on [place] for the summer and spends the winter in [place]. Patient would like to ideally return home to [place] for the majority of her post-op recovery as they have more support and primary medical care there. Patient still has limited mobility at this time however and will likely need placement at a SNF for initial recovery prior to heading back home to [place]. Denies fever, chills, chest pain, SOB, nausea, vomiting. Operative Date/Time/Diagnoses Date of procedure: 10/21/23 Pre-op diagnosis: Intertrochanteric right femur fracture Post-op diagnosis: same Procedure & Clinicians Procedure: Intramedullary nailing of intertrochanteric right femur fracture Same procedure as scheduled: Yes Surgeon: Otf Mahmood Click Yes if Unassisted: Yes Anesthesia Type: General, Spinal and Local Operative Notes Estimated Blood Loss (mL): 300 Procedure in detail: Right Hip Intramedullary Nailing for Intertrochanteric Femur Fracture Exam Vital Signs (past 8 hours): - 10/24/23 04:32 10/24/23 08:00 Temperature 98.8 F 97.9 F Pulse Rate 88 73 Respiratory Rate 16 18 Blood Pressure 127/62 116/57 L Pulse Oximetry 97 96 Oxygen Flow Rate 0 Fraction of Inspired Oxygen 21 Oxygen Delivery Method Room Air Oxygen Flow Rate 0 Narrative Exam Narrative: Lying in bed comfortably during today. No acute distress. Her surgical dressings are intact, clean and dry with the exception of the most superior dressing which was moderately saturated with serosanguineous fluid. 5/5 strength with DF, PF, EHL bilaterally. Calf soft and nontender bilaterally. Gross sensation intact to light touch throughout bilateral lower extremities. Resp Effort & Inspection: normal respiratory effort and able to speak in complete sentences Cardio Rate: regular rate Other: Brisk capillary refill Objective Labs 10/22/23 04:43 10/22/23 04:43 PFSH Social History household members: spouse and family Smoking Status: Never smoker alcohol intake: never Assessment & Plan Post-op Postoperative Procedures: Procedures Operation Date: 10/21/23 13:30 Actual Procedure Side Surgeon p Right Hip IM Nail (Long Intertroch) Right Otf Mahmood MD Postoperative plan narrative: The patient's superior postsurgical dressing was changed by me today, patient tolerated well. 1) Will likely d/c to SNF per medicine as patient has limited support at home. 2) Continue multimodal pain management with ice to the knee/hip for additional pain control. 3) ASA b.i.d. for DVT prophylaxis for 6 weeks. 4) Continue w/ outpatient physical therapy to work on range of motion, mobility and stability. Weightbearing as tolerated. 5) Keep dressing intact, clean, dry until 2 week postop appointment. No soaking the incision site in pools or tubs. No topical ointments or creams to the incision site. 6) Follow up at [facility] orthopedics in 2 weeks for a postop appointment, staple removal and wound check. All patient's questions were answered, she demonstrates understanding and is in agreement with the plan. Call our office if any questions or concerns arise.
--- NOTE | 2023-10-24 11:32 | CM.DPNOTE ---
Addendum entered by MAYLIN Araiza 10/24/23 12:20: CC Kathleen got signed med list and scripts from provider. Placed in chart/emailed to Bessie. No other CM needs at this time. SL Original Note: DCP Note LEAD CARGO MOVER reviewed EMR. per hospitalist in morning rounds, pt medically stable for DC to SNF today. Per admitting group, verified patient has Medicare A&B with [employer] sup. Ins Card scanned into chart. LEAD CARGO MOVER updated Shannan at [facility] to cancel referral. LEAD CARGO MOVER updated Maryann at to cancel referral via . LEAD CARGO MOVER gave PASRR to JUANY Wang to sent to Bessie from . Per Bessie from , able to accept pt and able to p/u between 1:45pm-2:15pm. LEAD CARGO MOVER updated ONCOLOGY NURSE/Gave RN report number. LEAD CARGO MOVER updated provider/pt in room. LEAD CARGO MOVER answered pt's questions to best of ability and explained medicare SNF benefit to best of ability. Both agreeable to plan. Provider will work on orders/med list. P: anticipate dc to [facility] today transport between 1:45pm-2:15pm. Signed med list needed. CM team will continue to follow closely. MAYLIN Araiza
--- NOTE | 2023-10-24 11:34 | PM.DS.1 ---
History of Present Illness History of Present Illness Date Patient Seen: 10/24/23 Time Patient Seen: 11:15 Date of Onset of Symptoms: 10/20/23 Chief complaint: GLF, hip fx Narrative: 83 years old pleasant female with apparent no medical issues except for [id number] vitamins was brought to the emergency room status post fall in the kitchen. It was a mechanical fall and she tripped over her dress with significant right-sided hip pain. Denies any chest pain shortness of breath palpitation dizziness or loss of consciousness. No trauma to the head. She was flown by helicopter to the [facility] for further evaluation. Denies any nausea vomiting or abdominal pain. Denies bowel movementbladder issues. X-ray of the right hip showed right basicervical hip fracture with tumor x-ray shows no displaced fracture of the femoral shaft. X-ray of the knee shows significant degenerative change. Dr. Sanchez from orthopedics were consulted and patient was admitted for further evaluation. Discharge Providers Provider Date of admission: 10/19/23 22:47 Discharge Date: 10/24/23 Primary care physician: Doctor Reza MD Consults: 10/21/23 17:32 Consult to Discharge Planning Routine Comment: Consult to Occupational Therapy Evaluate & Treat Comment: Physician Instructions: Evaluate and treat Consult to Physical Therapy Evaluate & Treat Comment: Physician Instructions: Evaluate and Treat Discharge provider: Jayy Conrad MD Summary Hospital Course Discharge Diagnosis: 1. Right proximal femur fracture, pathologic due to osteoporosis 2. Osteoporosis, presumed Hospital Course: 1. Pathologic R proximal femur fracture (osteoporosis), present on admission and active. -slipped on a tile floor with socks on. -Intramedullary nailing of intertrochanteric right femur fracture 10/21/2023 -presumed osteoporosis. Lives with her who has significant impairment and requires care giving himself. This has been part of the year in [place], part of the year in [place], and the rest of the year in [place]. Patient was admitted under inpatient status given the acute hip fracture needing surgical intervention/IV pain medications and expected length of stay greater than 2 midnights Code: Full, surrogate is listed as patient's friend DVT prophylaxis: Asa BID for 6 weeks. She remained stable throughout her hospitalization was discharged to correction for ongoing rehabilitation before returning home to [facility]. Status at Discharge Cognitive/behavioral status at discharge: oriented Functional status at discharge: uses cane/walker Overall status at discharge: patient is not back to baseline Time Spent with Patient Time spent: Less than 30 minutes Exam Vital Signs (past 8 hours): - 10/24/23 04:32 10/24/23 08:00 Temperature 98.8 F 97.9 F Pulse Rate 88 73 Respiratory Rate 16 18 Blood Pressure 127/62 116/57 L Pulse Oximetry 97 96 Oxygen Flow Rate 0 Fraction of Inspired Oxygen 21 Oxygen Delivery Method Room Air Oxygen Flow Rate 0 Narrative Exam Narrative: NAD, alert and oriented. Fluent speech. Lungs are clear, normal rate and effort. Heart is regular, no murmur gallop or rub. Abdomen is soft, non distended. Extremities are free of edema. Right hip bandage in place, clean, dry and intact Objective Imaging Right hip x-ray 10/19/2023: Radiologist's impression: Right basicervical hip fracture. Possible fracture fragment of the greater trochanter also seen. Right femur x-ray 10/19/2023: Radiologist's impression: No displaced fracture of the femoral shaft. Knee degenerative changes. Hip fracture findings are separately dictated. Partially seen knee effusion and possible intra-articular ossifications Right knee x-ray 10/19/2023: Radiologist's impression: Moderate to severe degenerative changes. No acute radiographic abnormality. If there is high concern for occult injury, consider repeat radiography or cross-sectional imaging. Knee effusion and suprapatellar ossification. Chest x-ray 10/19/2023: Radiologist's impression: No acute radiographic abnormality. Indeterminate nodule projects over the left lower lobe, possibly nipple shadow. Right hip x-ray 10/21/2023: Radiologist's impression: Intraoperative images demonstrating fixation of the right femoral head as well as distal femur. Labs 10/22/23 04:43 10/22/23 04:43 [facility] Social History household members: spouse and family Smoking Status: Never smoker alcohol intake: never Discharge Plan Discharge Plan Patient Disposition: SNF Transfer to: [facility] Consult as needed: Dental, Hearing, Mental health, Podiatry and Vision Provider Discharge Comment: Followup with orthopedics in 2 weeks Discharge orders & Medications Prescriptions: New acetaminophen 325 mg Tablet 650 mg PO Q6H PRN (Reason: Pain (Scale Score 4-6)) Qty: 60 0RF aspirin 81 mg Tablet,Delayed Release (Dr/Ec) 81 mg PO BID 42 Days Qty: 84 0RF docusate sodium 100 mg Capsule 100 mg PO BID Qty: 30 0RF Continued Multivitamin and [id number] (MULTIPLE VITAMIN 240 ML) 240 ml PO BID Qty: 0 CHOLECALCIFEROL (VITAMIN D3) (VITAMIN D) 400 iu PO QDAY Qty: 0 Rx Instructions: pt doesn't take it cosintently Follow up/Referrals: Doctor Cobb MD [Primary Care Provider] - Otf Mahmood MD [Physician] - 2 Weeks (Follow up w/ KAYLEE or Dr Mahmood in ortho clinic in 2 weeks for wound check. F/u w/ Dr Mahmood in 6 weeks for repeat imaging.) Diet/Activity/Treatments Diet: Diet as Tolerated Activity: Weightbearing as tolerated. Skin/Wound/Dressing Care Report to your healthcare provider any signs of infection, such as:: chills, fever, night sweats, unusual drainage and unusual redness Dressing: If dressings become dirty or saturated, may remove and replace with clean, dry gauze. Special Rehabilitation Services Reason for rehabilitation: Post-operative therapy Rehab type: Physical therapy Visit Report/Discharge Packet Stand Alone Forms: Patient Portal/API Discharge Data Primary Care Provider: Doctor Reza
[2023-10-24 12:00] VITALS: BP 143/52; RESP 18; TEMP 36.6; O2SAT 100
== END 2023-10-24 15:03 | DRG 482 ==
LOC: ED 22:48 → AC 22:48
PROVIDERS: Orthopaedic Surgery Adult Reconstructive Orthopaedic Surgery; Admitting Provider Internal Medicine; Emergency Provider Emergency Medicine; Family Provider Family Medicine; Referring Provider Emergency Medicine; Visit Provider Internal Medicine
PROC: 0QS606Z Reposition Right Upper Femur with Intramedullary Internal Fixation Device, Open Approach (ICD-10-PCS; CPT 27245; principal; 2023-10-21 13:30)
DX: M80.051A Age-related osteoporosis with current pathological fracture, right femur, initial encounter for fracture (principal)
CPT/HCPCS: 36415; 71045; 73502; 73503; 73552; 73560; 76000; 80048; 80053; 81001; 83735; 85014; 85018; 85025; 85610; 85730; 87086; 93005; 96374; 97110; 97116; 97162; 97166; 97530; 97535; 99284; 99291; J0136; J0171; J0690; J1170; J1885; J2250; J2274; J2405; J2704

== ENCOUNTER → 2023-11-03 14:24 | Outpatient (ROUT) | payer MEDICARE, OTHER, SELFPAY ==
[2023-10-20 00:02] VITALS: BMI 25.7
[2023-11-03 14:47] LABS: Appearance Urine UA CLEAR; Bilirubin Urine UA NEGATIVE (NEGATIVE); Color Urine UA YELLOW; Glucose Urine UA NEGATIVE (Negative); Ketones Urine UA NEGATIVE (NEGATIVE); Leukocyte Esterase Urine UA NEGATIVE (NEGATIVE); Nitrite Urine UA NEGATIVE (Negative); Occult Blood Urine UA NEGATIVE (Negative); Protein Urine UA NEGATIVE (Negative); Specific Gravity Urine UA >=1.030 (1.000-1.035); Urobilinogen Urine UA 0.2 E.U./dL (0.2)
[2023-11-03 14:56] LABS: Bacteria Urine Few (2-10); Culture Indicated Urine Cult Not Indicated; Mucus Urine 1+ (Negative); RBC Urine 0-1/HPF (0-5/HPF); Squamous Epithelial Cell Urine 0-1 /HPF (0-5/HPF); Urine Volume 10mL (spun); WBC Urine 0-1/HPF (0-5/HPF)
== END ==
PROVIDERS: Family Provider Family Medicine; Visit Provider Registered Nurse
DX: Z00.00 Encounter for general adult medical examination without abnormal findings (principal)
CPT/HCPCS: 81001; 87086

== ENCOUNTER → 2023-11-15 06:33 | Outpatient (ROUT) | payer MEDICARE, OTHER, SELFPAY ==
[2023-10-20 00:02] VITALS: BMI 25.7
[2023-11-15 06:49] LABS: Appearance Urine UA CLEAR; Bilirubin Urine UA NEGATIVE (NEGATIVE); Color Urine UA YELLOW; Glucose Urine UA NEGATIVE (Negative); Ketones Urine UA NEGATIVE (NEGATIVE); Leukocyte Esterase Urine UA NEGATIVE (NEGATIVE); Nitrite Urine UA NEGATIVE (Negative); Occult Blood Urine UA NEGATIVE (Negative); Protein Urine UA NEGATIVE (Negative); Urobilinogen Urine UA 0.2 E.U./dL (0.2)
[2023-11-15 06:59] LABS: pH Urine UA 7.5 (4.5-8.0)
[2023-11-15 07:11] LABS: Bacteria Urine None Seen; Culture Indicated Urine Cult Not Indicated; RBC Urine 0-1/HPF (0-5/HPF); Squamous Epithelial Cell Urine 0-1 /HPF (0-5/HPF); Urine Volume 10mL (spun); WBC Urine None Seen (0-5/HPF)
== END ==
PROVIDERS: Family Provider Family Medicine; Visit Provider Nurse Practitioner Adult Health
DX: R82.90 Unspecified abnormal findings in urine (principal)
CPT/HCPCS: 81001